=== PATIENT | male | born 1960 | race Caucasian/White ===

== ENCOUNTER 2018-01-11 17:26 | Inpatient (IN) | payer MEDICARE, MEDICAID ==
[2018-01-11] MEDS ORDERED: LORazepam 2 MG TAB PO (20:30)
[2018-01-11] MEDS ORDERED: MOM 30ML SUSPENSION UDC PO (20:30)
[2018-01-11] MEDS ORDERED: MAALOX 30 ML SUSP *UDC PO (20:30)
[2018-01-11] MEDS: THIAMINE 100 MG TAB PO (23:41)
[2018-01-11] MEDS: traZODone 50 MG TAB PO (23:41)
[2018-01-12] MEDS: FOLIC ACID 1 MG TAB PO (09:28)
[2018-01-12] MEDS: MULTIVITAMINS/MINERALS THERAP 1 TAB PO (09:28)
[2018-01-12] MEDS: THIAMINE 100 MG TAB PO ×2 (09:29→20:22)
[2018-01-12 09:43] LABS: BEDSIDE GLUCOSE 191 MG/DL (70-105)
[2018-01-12] MEDS: METOPROLOL TARTRATE 100 MG TAB PO ×2 (11:58→20:20)
[2018-01-12] MEDS: SITagliptin 50 MG TAB (JANUVIA) PO (11:59)
[2018-01-12] MEDS: ATORVASTATIN 20 MG TAB PO (12:03)
[2018-01-12] MEDS: NICOTINE 21MG/24HR 1 EA TRANSDERMAL TD (16:03)
[2018-01-12] MEDS: traZODone 50 MG TAB PO (20:23)
[2018-01-12] MEDS: ACETAMINOPHEN TAB 650MG DOSE (2X325MG) PO (20:23)
[2018-01-12] MEDS: DIVALPROEX 500MG *ER* TAB PO (20:23)
[2018-01-12] MEDS ORDERED: DIVALPROEX 500MG *ER* TAB PO (21:00)
[2018-01-13 06:55] LABS: BEDSIDE GLUCOSE 100 MG/DL (70-105)
[2018-01-13 07:16] LABS: ESTIMATED AVERAGE GLUCOSE 140 MG/DL (60-110); HEMOGLOBIN A1c 6.5 %
[2018-01-13 07:35] LABS: ALBUMIN 3.7 GM/DL (3.2-5.2); ALBUMIN/GLOBULIN RATIO 1.03 (1.00-1.93); ALKALINE PHOSPHATASE 68 U/L (45-117); ALT/SGPT 22 U/L (12-78); ANION GAP 8 MEQ/L (8-16); AST/SGOT 15 U/L (7-37); BILIRUBIN,TOTAL 0.7 MG/DL (0.2-1.0); BLOOD UREA NITROGEN 10 MG/DL (7-18); CALCIUM LEVEL 8.8 MG/DL (8.5-10.1); CARBON DIOXIDE LEVEL 30 MEQ/L (21-32); CHLORIDE LEVEL 104 MEQ/L (98-107); CREATININE FOR GFR 0.77 MG/DL (0.70-1.30); GLOMERULAR FILTRATION RATE > 60.0 (>56); GLUCOSE, FASTING 91 MG/DL (70-100); POTASSIUM SERUM 4.2 MEQ/L (3.5-5.1); SODIUM LEVEL 142 MEQ/L (136-145); TOTAL PROTEIN 7.3 GM/DL (6.4-8.2)
[2018-01-13] MEDS: NICOTINE 21MG/24HR 1 EA TRANSDERMAL TD (08:44)
[2018-01-13] MEDS: ATORVASTATIN 20 MG TAB PO (08:44)
[2018-01-13] MEDS: MULTIVITAMINS/MINERALS THERAP 1 TAB PO (08:44)
[2018-01-13] MEDS: THIAMINE 100 MG TAB PO ×2 (08:44→20:49)
[2018-01-13] MEDS: FOLIC ACID 1 MG TAB PO (08:44)
[2018-01-13] MEDS: SITagliptin 50 MG TAB (JANUVIA) PO (08:48)
[2018-01-13] MEDS: METOPROLOL TARTRATE 100 MG TAB PO ×2 (09:00→20:49)
[2018-01-13] MEDS: ACETAMINOPHEN TAB 650MG DOSE (2X325MG) PO (13:59)
[2018-01-13] MEDS: DIVALPROEX 500MG *ER* TAB PO (20:48)
[2018-01-13] MEDS: FLUTICASONE PROP 0.05% NASAL SPRAY 16 GM (FLONASE) (20:49)
[2018-01-13] MEDS: QUEtiapine FUMARATE 25 MG TAB PO (20:49)
[2018-01-13] MEDS: EXCEDRIN MIGRAINE TABLET PO (20:49)
[2018-01-14] MEDS: EXCEDRIN MIGRAINE TABLET PO ×3 (06:27→21:15)
[2018-01-14 06:31] LABS: BEDSIDE GLUCOSE 109 MG/DL (70-105)
[2018-01-14] MEDS: FOLIC ACID 1 MG TAB PO (08:11)
[2018-01-14] MEDS: MULTIVITAMINS/MINERALS THERAP 1 TAB PO (08:11)
[2018-01-14] MEDS: NICOTINE 21MG/24HR 1 EA TRANSDERMAL TD (08:11)
[2018-01-14] MEDS: SITagliptin 50 MG TAB (JANUVIA) PO (08:11)
[2018-01-14] MEDS: ATORVASTATIN 20 MG TAB PO (08:12)
[2018-01-14] MEDS: THIAMINE 100 MG TAB PO (08:12)
[2018-01-14] MEDS: METOPROLOL TARTRATE 100 MG TAB PO ×2 (08:14→21:14)
[2018-01-14] MEDS: DIVALPROEX 250MG *ER* TAB PO (15:44)
[2018-01-14 17:35] LABS: BEDSIDE GLUCOSE 124 MG/DL (70-105)
[2018-01-14] MEDS: QUEtiapine FUMARATE 50 MG TAB PO (21:14)
[2018-01-14] MEDS: DIVALPROEX 500MG *ER* TAB PO (21:14)
[2018-01-15 06:20] LABS: BEDSIDE GLUCOSE 117 MG/DL (70-105)
[2018-01-15 07:33] LABS: VALPROIC ACID (DEPAKOTE) 61.5 UG/ML (50.0-100.0)
[2018-01-15] MEDS: METOPROLOL TARTRATE 100 MG TAB PO (08:23)
[2018-01-15] MEDS: FOLIC ACID 1 MG TAB PO (08:24)
[2018-01-15] MEDS: DIVALPROEX 250MG *ER* TAB PO (08:24)
[2018-01-15] MEDS: SITagliptin 50 MG TAB (JANUVIA) PO (08:24)
[2018-01-15] MEDS: NICOTINE 21MG/24HR 1 EA TRANSDERMAL TD (08:24)
[2018-01-15] MEDS: MULTIVITAMINS/MINERALS THERAP 1 TAB PO (08:24)
[2018-01-15] MEDS: EXCEDRIN MIGRAINE TABLET PO (08:24)
[2018-01-15] MEDS: ATORVASTATIN 20 MG TAB PO (08:24)
[2018-01-15] MEDS: FLUTICASONE PROP 0.05% NASAL SPRAY 16 GM (FLONASE) (08:25)
[2018-01-15 12:45] LABS: BEDSIDE GLUCOSE 117 MG/DL (70-105)
== END 2018-01-15 13:20 | disposition home or self-care (01) | DRG 885 ==
LOC: M PSY 20:29 → M ED 17:26 → M ED INP 20:29 → M PSY 21:30
PROVIDERS: Psychiatry & Neurology Psychiatry
DX: F31.9 Bipolar disorder, unspecified (principal); F10.10 Alcohol abuse, uncomplicated; F90.9 Attention-deficit hyperactivity disorder, unspecified type; F43.10 Post-traumatic stress disorder, unspecified; F60.89 Other specific personality disorders; E11.9 Type 2 diabetes mellitus without complications; I10 Essential (primary) hypertension; Z79.899 Other long term (current) drug therapy; Z88.8 Allergy status to other drugs, medicaments and biological substances; Z91.018 Allergy to other foods; E78.5 Hyperlipidemia, unspecified; G47.33 Obstructive sleep apnea (adult) (pediatric); E66.9 Obesity, unspecified; Z68.30 Body mass index [BMI] 30.0-30.9, adult; Z62.810 Personal history of physical and sexual abuse in childhood

== ENCOUNTER 2018-05-04 01:37 | Inpatient (IN) | payer MEDICARE, MEDICAID ==
[2018-05-04 02:25] LABS: HEMATOCRIT 39.6 % (42.0-52.0); HEMOGLOBIN 14.4 g/dl (13.5-17.5); MEAN CORPUSCULAR HEMOGLOBIN 33.5 pg (27.0-33.0); MEAN CORPUSCULAR HGB CONC 36.4 g/dl (32.0-36.5); MEAN CORPUSCULAR VOLUME 92.1 fl (80.0-96.0); PLATELET COUNT, AUTOMATED 260 10^3/uL (150-450); RED CELL DISTRIBUTION WIDTH 13.5 % (11.5-14.5); WHITE BLOOD COUNT 6.8 10^3/uL (4.0-10.0)
[2018-05-04 02:45] LABS: AMPHETAMINES LEVEL URINE NEGATIVE (NEGATIVE); BARBITURATES URINE NEGATIVE (NEGATIVE); BENZODIAZEPINES URINE NEGATIVE (NEGATIVE); CANNABINOIDS URINE NEGATIVE (NEGATIVE); COCAINE METABOLITE URINE NEGATIVE (NEGATIVE); METHADONE URINE NEGATIVE (NEGATIVE); OPIATES URINE NEGATIVE (NEGATIVE); PHENCYCLIDINE URINE NEGATIVE (NEGATIVE)
[2018-05-04 02:56] LABS: ALBUMIN 3.7 GM/DL (3.2-5.2); ALKALINE PHOSPHATASE 62 U/L (45-117); ALT/SGPT 93 U/L (12-78); ANION GAP 12 MEQ/L (8-16); AST/SGOT 109 U/L (7-37); BILIRUBIN,DIRECT 0.1 MG/DL (0.0-0.2); BILIRUBIN,TOTAL 0.4 MG/DL (0.2-1.0); BLOOD UREA NITROGEN 5 MG/DL (7-18); CALCIUM LEVEL 8.1 MG/DL (8.5-10.1); CARBON DIOXIDE LEVEL 26 MEQ/L (21-32); CHLORIDE LEVEL 105 MEQ/L (98-107); CREATININE FOR GFR 0.79 MG/DL (0.70-1.30); ETHYL ALCOHOL (ETHANOL) 0.347 % (0.000-0.010); GLOMERULAR FILTRATION RATE > 60.0 (>56); GLUCOSE, FASTING 107 MG/DL (70-100); POTASSIUM SERUM 3.9 MEQ/L (3.5-5.1); SALICYLATE LEVEL < 1.7 MG/DL (5.0-30.0); SODIUM LEVEL 143 MEQ/L (136-145); TOTAL PROTEIN 7.4 GM/DL (6.4-8.2); VALPROIC ACID (DEPAKOTE) 4.2 UG/ML (50.0-100.0)
[2018-05-04 02:57] LABS: ACETAMINOPHEN LEVEL < 2.0 UG/ML (10.0-30.0)
[2018-05-04 04:00] LABS: BEDSIDE GLUCOSE 92 MG/DL (70-105)
[2018-05-04] MEDS: OXAZEPAM 10 MG CAP PO (04:00)
[2018-05-04] MEDS: NICOTINE 21MG/24HR 1 EA TRANSDERMAL TD (04:00)
[2018-05-04] MEDS: MULTIVITAMINS/MINERALS THERAP 1 TAB PO (09:00)
[2018-05-04] MEDS: FOLIC ACID 1 MG TAB PO (09:00)
[2018-05-04] MEDS: NALTREXONE 50 MG TAB PO (09:00)
[2018-05-04] MEDS: OXAZEPAM 15 MG CAP PO ×3 (10:08→20:27)
[2018-05-04 18:21] LABS: BEDSIDE GLUCOSE 134 MG/DL (70-105)
[2018-05-04] MEDS ORDERED: MAALOX 30 ML SUSP *UDC PO (19:15)
[2018-05-04] MEDS ORDERED: traZODone 50 MG TAB PO (19:15)
[2018-05-04] MEDS ORDERED: MOM 30ML SUSPENSION UDC PO (19:15)
[2018-05-04] MEDS: ACETAMINOPHEN TAB 650MG DOSE (2X325MG) PO (20:26)
[2018-05-04] MEDS: METOPROLOL TARTRATE 100 MG TAB PO (20:27)
[2018-05-04] MEDS: MONTELUKAST 10 MG TAB PO (20:27)
[2018-05-04] MEDS: ATORVASTATIN 20 MG TAB PO (20:28)
[2018-05-04] MEDS: DIVALPROEX 500MG *ER* TAB PO (20:28)
[2018-05-04] MEDS: THIAMINE 100 MG TAB PO (20:29)
[2018-05-04] MEDS: PRAZOSIN 1 MG CAP PO (20:29)
[2018-05-04] MEDS: QUEtiapine FUMARATE 100 MG TAB PO (20:29)
[2018-05-05] MEDS: NALTREXONE 50 MG TAB PO (08:28)
[2018-05-05] MEDS: DIVALPROEX 500MG *ER* TAB PO ×2 (08:28→21:29)
[2018-05-05] MEDS: FOLIC ACID 1 MG TAB PO (08:29)
[2018-05-05] MEDS: SITagliptin 50 MG TAB (JANUVIA) PO (08:29)
[2018-05-05] MEDS: MULTIVITAMINS/MINERALS THERAP 1 TAB PO (08:30)
[2018-05-05] MEDS: THIAMINE 100 MG TAB PO ×2 (08:30→21:27)
[2018-05-05] MEDS: OXAZEPAM 10 MG CAP PO (08:30)
[2018-05-05] MEDS: METOPROLOL TARTRATE 100 MG TAB PO ×2 (08:32→21:00)
[2018-05-05] MEDS: ACETAMINOPHEN TAB 650MG DOSE (2X325MG) PO (08:33)
[2018-05-05] MEDS: NICOTINE 21MG/24HR 1 EA TRANSDERMAL TD (09:30)
[2018-05-05] MEDS ORDERED: LORazepam 1 MG TAB PO (14:30)
[2018-05-05] MEDS: MONTELUKAST 10 MG TAB PO (21:27)
[2018-05-05] MEDS: QUEtiapine FUMARATE 100 MG TAB PO (21:27)
[2018-05-05] MEDS: ATORVASTATIN 20 MG TAB PO (21:28)
[2018-05-05] MEDS: PRAZOSIN 1 MG CAP PO (21:28)
[2018-05-05] MEDS: LISINOPRIL 5 MG TAB PO (22:57)
[2018-05-06 07:42] LABS: ALBUMIN 3.4 GM/DL (3.2-5.2); ALBUMIN/GLOBULIN RATIO 0.87 (1.00-1.93); ALKALINE PHOSPHATASE 64 U/L (45-117); ALT/SGPT 65 U/L (12-78); AST/SGOT 42 U/L (7-37); BILIRUBIN,DIRECT 0.2 MG/DL (0.0-0.2); BILIRUBIN,TOTAL 0.6 MG/DL (0.2-1.0); TOTAL PROTEIN 7.3 GM/DL (6.4-8.2)
[2018-05-06] MEDS: NALTREXONE 50 MG TAB PO (08:31)
[2018-05-06] MEDS: DIVALPROEX 500MG *ER* TAB PO ×2 (08:32→21:08)
[2018-05-06] MEDS: FOLIC ACID 1 MG TAB PO (08:32)
[2018-05-06] MEDS: MULTIVITAMINS/MINERALS THERAP 1 TAB PO (08:32)
[2018-05-06] MEDS: SITagliptin 50 MG TAB (JANUVIA) PO (08:33)
[2018-05-06] MEDS: LISINOPRIL 5 MG TAB PO (08:33)
[2018-05-06] MEDS: THIAMINE 100 MG TAB PO ×2 (08:34→21:07)
[2018-05-06] MEDS: NICOTINE 21MG/24HR 1 EA TRANSDERMAL TD (08:36)
[2018-05-06] MEDS: METOPROLOL TARTRATE 100 MG TAB PO ×2 (08:39→21:00)
[2018-05-06] MEDS: ACETAMINOPHEN TAB 650MG DOSE (2X325MG) PO (11:39)
[2018-05-06] MEDS: ATORVASTATIN 20 MG TAB PO (21:07)
[2018-05-06] MEDS: MONTELUKAST 10 MG TAB PO (21:07)
[2018-05-06] MEDS: PRAZOSIN 1 MG CAP PO (21:07)
[2018-05-06] MEDS: QUEtiapine FUMARATE 50 MG TAB PO (21:07)
[2018-05-07] MEDS: FOLIC ACID 1 MG TAB PO (08:21)
[2018-05-07] MEDS: MULTIVITAMINS/MINERALS THERAP 1 TAB PO (08:21)
[2018-05-07] MEDS: DIVALPROEX 500MG *ER* TAB PO (08:21)
[2018-05-07] MEDS: NICOTINE 21MG/24HR 1 EA TRANSDERMAL TD (08:21)
[2018-05-07] MEDS: FLUTICASONE PROP 0.05% NASAL SPRAY 16 GM (FLONASE) NARES (08:21)
[2018-05-07] MEDS: SITagliptin 50 MG TAB (JANUVIA) PO (08:21)
[2018-05-07] MEDS: THIAMINE 100 MG TAB PO (08:22)
[2018-05-07] MEDS: LISINOPRIL 5 MG TAB PO (08:22)
[2018-05-07] MEDS: METOPROLOL TARTRATE 100 MG TAB PO (08:22)
[2018-05-07] MEDS: NALTREXONE 50 MG TAB PO (08:22)
== END 2018-05-07 12:30 | disposition home or self-care (01) | DRG 885 ==
LOC: M ED 01:37 → M PSY 17:45
DX: F31.81 Bipolar II disorder (principal); R45.851 Suicidal ideations; F43.10 Post-traumatic stress disorder, unspecified; J30.9 Allergic rhinitis, unspecified; G47.33 Obstructive sleep apnea (adult) (pediatric); R94.5 Abnormal results of liver function studies; E11.9 Type 2 diabetes mellitus without complications; E78.5 Hyperlipidemia, unspecified; F17.228 Nicotine dependence, chewing tobacco, with other nicotine-induced disorders; I10 Essential (primary) hypertension; F90.9 Attention-deficit hyperactivity disorder, unspecified type; Z88.8 Allergy status to other drugs, medicaments and biological substances; Z91.018 Allergy to other foods; Z79.84 Long term (current) use of oral hypoglycemic drugs; Z79.899 Other long term (current) drug therapy

== ENCOUNTER 2018-05-12 19:10 | Inpatient (IN) | payer MEDICARE, MEDICAID ==
[2018-05-12 19:59] LABS: HEMATOCRIT 41.7 % (42.0-52.0); HEMOGLOBIN 14.9 g/dl (13.5-17.5); MEAN CORPUSCULAR HGB CONC 35.7 g/dl (32.0-36.5); MEAN CORPUSCULAR VOLUME 92.5 fl (80.0-96.0); PLATELET COUNT, AUTOMATED 234 10^3/uL (150-450); RED BLOOD COUNT 4.51 10^6/uL (4.30-6.10); RED CELL DISTRIBUTION WIDTH 13.9 % (11.5-14.5); WHITE BLOOD COUNT 7.9 10^3/uL (4.0-10.0)
[2018-05-12 20:19] LABS: ALKALINE PHOSPHATASE 65 U/L (45-117); ALT/SGPT 37 U/L (12-78); ANION GAP 14 MEQ/L (8-16); AST/SGOT 26 U/L (7-37); BILIRUBIN,DIRECT 0.2 MG/DL (0.0-0.2); BILIRUBIN,TOTAL 0.5 MG/DL (0.2-1.0); BLOOD UREA NITROGEN 4 MG/DL (7-18); CALCIUM LEVEL 8.2 MG/DL (8.5-10.1); CARBON DIOXIDE LEVEL 24 MEQ/L (21-32); CHLORIDE LEVEL 104 MEQ/L (98-107); CREATININE FOR GFR 0.69 MG/DL (0.70-1.30); ETHYL ALCOHOL (ETHANOL) 0.317 % (0.000-0.010); GLOMERULAR FILTRATION RATE > 60.0 (>56); GLUCOSE, FASTING 103 MG/DL (70-100); POTASSIUM SERUM 3.6 MEQ/L (3.5-5.1); SALICYLATE LEVEL < 1.7 MG/DL (5.0-30.0); SODIUM LEVEL 142 MEQ/L (136-145); THYROID STIMULATING HORMONE 0.907 uIU/ML (0.358-3.740)
[2018-05-12] MEDS: NICOTINE 21MG/24HR 1 EA TRANSDERMAL TD (20:20)
[2018-05-12 20:21] LABS: ACETAMINOPHEN LEVEL < 2.0 UG/ML (10.0-30.0)
[2018-05-12 20:52] LABS: AMPHETAMINES LEVEL URINE NEGATIVE (NEGATIVE); BARBITURATES URINE NEGATIVE (NEGATIVE); BENZODIAZEPINES URINE NEGATIVE (NEGATIVE); CANNABINOIDS URINE NEGATIVE (NEGATIVE); COCAINE METABOLITE URINE NEGATIVE (NEGATIVE); METHADONE URINE NEGATIVE (NEGATIVE); OPIATES URINE NEGATIVE (NEGATIVE); PHENCYCLIDINE URINE NEGATIVE (NEGATIVE)
[2018-05-13] MEDS: OXAZEPAM 15 MG CAP PO (03:32)
[2018-05-13] MEDS ORDERED: MAALOX 30 ML SUSP *UDC PO (05:15)
[2018-05-13] MEDS: LORazepam 2 MG/ML VIAL (J2060) IM (09:50)
[2018-05-13] MEDS: THIAMINE 100 MG TAB PO (09:51)
[2018-05-13] MEDS: MULTIVITAMINS/MINERALS THERAP 1 TAB PO (09:51)
[2018-05-13] MEDS: FOLIC ACID 1 MG TAB PO (09:51)
[2018-05-13] MEDS: NALTREXONE 50 MG TAB PO ×2 (11:36→21:07)
[2018-05-13] MEDS ORDERED: LORazepam 1 MG TAB PO (12:30)
[2018-05-13] MEDS: SITagliptin 50 MG TAB (JANUVIA) PO (12:43)
[2018-05-13] MEDS: FLUTICASONE PROP 0.05% NASAL SPRAY 16 GM (FLONASE) NARES (12:43)
[2018-05-13] MEDS: METOPROLOL TARTRATE 100 MG TAB PO ×2 (12:44→21:07)
[2018-05-13] MEDS: LORazepam 1 MG TAB PO (12:47)
[2018-05-13] MEDS ORDERED: LORazepam 2 MG TAB PO (13:00)
[2018-05-13 17:14] LABS: BEDSIDE GLUCOSE 122 MG/DL (70-105)
[2018-05-13] MEDS: ATORVASTATIN 20 MG TAB PO (21:04)
[2018-05-13] MEDS: ACETAMINOPHEN TAB 650MG DOSE (2X325MG) PO (21:04)
[2018-05-13] MEDS: DIVALPROEX 500MG *ER* TAB PO (21:04)
[2018-05-13] MEDS: traZODone 50 MG TAB PO (21:09)
[2018-05-14] MEDS ORDERED: LORazepam 1 MG TAB PO (06:00)
[2018-05-14 06:07] LABS: BEDSIDE GLUCOSE 116 MG/DL (70-105)
[2018-05-14] MEDS: NALTREXONE 50 MG TAB PO ×2 (08:09→21:07)
[2018-05-14] MEDS: METOPROLOL TARTRATE 100 MG TAB PO ×2 (08:10→21:07)
[2018-05-14] MEDS: FLUTICASONE PROP 0.05% NASAL SPRAY 16 GM (FLONASE) NARES (08:10)
[2018-05-14] MEDS: THIAMINE 100 MG TAB PO (08:10)
[2018-05-14] MEDS: FOLIC ACID 1 MG TAB PO (08:10)
[2018-05-14] MEDS: SITagliptin 50 MG TAB (JANUVIA) PO (08:10)
[2018-05-14] MEDS: MULTIVITAMINS/MINERALS THERAP 1 TAB PO (08:10)
[2018-05-14] MEDS: NICOTINE 21MG/24HR 1 EA TRANSDERMAL TD (09:05)
[2018-05-14] MEDS ORDERED: LORazepam 2 MG TAB PO (15:00)
[2018-05-14 16:23] LABS: BEDSIDE GLUCOSE 136 MG/DL (70-105)
[2018-05-14] MEDS: ACETAMINOPHEN TAB 650MG DOSE (2X325MG) PO (16:23)
[2018-05-14] MEDS: ATORVASTATIN 20 MG TAB PO (21:07)
[2018-05-14] MEDS: DIVALPROEX 500MG *ER* TAB PO (21:07)
[2018-05-14] MEDS: QUEtiapine FUMARATE 100 MG TAB PO (21:08)
[2018-05-15 06:22] LABS: BEDSIDE GLUCOSE 135 MG/DL (70-105)
[2018-05-15] MEDS: ACETAMINOPHEN TAB 650MG DOSE (2X325MG) PO ×2 (06:24→20:52)
[2018-05-15] MEDS: NICOTINE 21MG/24HR 1 EA TRANSDERMAL TD (08:30)
[2018-05-15] MEDS: SITagliptin 50 MG TAB (JANUVIA) PO (08:30)
[2018-05-15] MEDS: FLUTICASONE PROP 0.05% NASAL SPRAY 16 GM (FLONASE) NARES (08:30)
[2018-05-15] MEDS: METOPROLOL TARTRATE 100 MG TAB PO ×2 (08:31→20:55)
[2018-05-15] MEDS: NALTREXONE 50 MG TAB PO ×2 (08:31→20:52)
[2018-05-15] MEDS: FOLIC ACID 1 MG TAB PO (08:31)
[2018-05-15] MEDS: MULTIVITAMINS/MINERALS THERAP 1 TAB PO (08:32)
[2018-05-15] MEDS: THIAMINE 100 MG TAB PO (09:00)
[2018-05-15 17:11] LABS: BEDSIDE GLUCOSE 153 MG/DL (70-105)
[2018-05-15] MEDS: ATORVASTATIN 20 MG TAB PO (20:52)
[2018-05-15] MEDS: DIVALPROEX 500MG *ER* TAB PO (20:52)
[2018-05-15] MEDS: QUEtiapine FUMARATE 50 MG TAB PO (20:52)
[2018-05-16 06:16] LABS: BEDSIDE GLUCOSE 88 MG/DL (70-105)
[2018-05-16 07:06] LABS: VALPROIC ACID (DEPAKOTE) 55.9 UG/ML (50.0-100.0)
[2018-05-16] MEDS: FLUTICASONE PROP 0.05% NASAL SPRAY 16 GM (FLONASE) NARES (08:25)
[2018-05-16] MEDS: NICOTINE 21MG/24HR 1 EA TRANSDERMAL TD (08:25)
[2018-05-16] MEDS: NALTREXONE 50 MG TAB PO ×2 (08:26→21:04)
[2018-05-16] MEDS: METOPROLOL TARTRATE 100 MG TAB PO ×2 (08:26→21:03)
[2018-05-16] MEDS: SITagliptin 50 MG TAB (JANUVIA) PO (08:26)
[2018-05-16] MEDS: MULTIVITAMINS/MINERALS THERAP 1 TAB PO (08:26)
[2018-05-16] MEDS: THIAMINE 100 MG TAB PO (08:27)
[2018-05-16] MEDS: FOLIC ACID 1 MG TAB PO (09:00)
[2018-05-16] MEDS: ARIPiprazole 10 MG TAB PO (12:19)
[2018-05-16] MEDS: ACETAMINOPHEN TAB 650MG DOSE (2X325MG) PO ×2 (15:15→21:05)
[2018-05-16 17:15] LABS: BEDSIDE GLUCOSE 124 MG/DL (70-105)
[2018-05-16] MEDS: ATORVASTATIN 20 MG TAB PO (21:04)
[2018-05-16] MEDS: QUEtiapine FUMARATE 50 MG TAB PO (21:04)
[2018-05-16] MEDS: DIVALPROEX 500MG *ER* TAB PO (21:04)
[2018-05-17 06:31] LABS: BEDSIDE GLUCOSE 102 MG/DL (70-105)
[2018-05-17] MEDS: NALTREXONE 50 MG TAB PO ×2 (08:03→20:50)
[2018-05-17] MEDS: METOPROLOL TARTRATE 100 MG TAB PO ×2 (08:04→20:53)
[2018-05-17] MEDS: NICOTINE 21MG/24HR 1 EA TRANSDERMAL TD (08:04)
[2018-05-17] MEDS: FLUTICASONE PROP 0.05% NASAL SPRAY 16 GM (FLONASE) NARES (08:04)
[2018-05-17] MEDS: SITagliptin 50 MG TAB (JANUVIA) PO (08:04)
[2018-05-17] MEDS: MULTIVITAMINS/MINERALS THERAP 1 TAB PO (08:06)
[2018-05-17] MEDS: FOLIC ACID 1 MG TAB PO (08:06)
[2018-05-17] MEDS: THIAMINE 100 MG TAB PO (08:06)
[2018-05-17 16:21] LABS: BEDSIDE GLUCOSE 158 MG/DL (70-105)
[2018-05-17] MEDS: ACETAMINOPHEN TAB 650MG DOSE (2X325MG) PO (20:49)
[2018-05-17] MEDS: QUEtiapine FUMARATE 50 MG TAB PO (20:49)
[2018-05-17] MEDS: ATORVASTATIN 20 MG TAB PO (20:50)
[2018-05-18] MEDS: ACETAMINOPHEN TAB 650MG DOSE (2X325MG) PO ×2 (06:23→21:19)
[2018-05-18 06:26] LABS: BEDSIDE GLUCOSE 98 MG/DL (70-105)
[2018-05-18] MEDS: METOPROLOL TARTRATE 100 MG TAB PO ×2 (08:01→21:00)
[2018-05-18] MEDS: NICOTINE 21MG/24HR 1 EA TRANSDERMAL TD (08:01)
[2018-05-18] MEDS: NALTREXONE 50 MG TAB PO ×2 (08:01→21:20)
[2018-05-18] MEDS: FLUTICASONE PROP 0.05% NASAL SPRAY 16 GM (FLONASE) NARES (08:01)
[2018-05-18] MEDS: SITagliptin 50 MG TAB (JANUVIA) PO (08:02)
[2018-05-18] MEDS: FOLIC ACID 1 MG TAB PO (08:03)
[2018-05-18] MEDS: THIAMINE 100 MG TAB PO (08:03)
[2018-05-18] MEDS: MULTIVITAMINS/MINERALS THERAP 1 TAB PO (08:03)
[2018-05-18] MEDS: hydrOXYzine 50 MG TAB PO (11:53)
[2018-05-18 17:02] LABS: BEDSIDE GLUCOSE 94 MG/DL (70-105)
[2018-05-18] MEDS: ATORVASTATIN 20 MG TAB PO (21:20)
[2018-05-18] MEDS: QUEtiapine FUMARATE 50 MG TAB PO (21:21)
[2018-05-19 06:17] LABS: BEDSIDE GLUCOSE 112 MG/DL (70-105)
[2018-05-19] MEDS: SITagliptin 50 MG TAB (JANUVIA) PO (08:41)
[2018-05-19] MEDS: NALTREXONE 50 MG TAB PO ×2 (08:41→20:41)
[2018-05-19] MEDS: METOPROLOL TARTRATE 100 MG TAB PO ×2 (08:43→20:41)
[2018-05-19] MEDS: NICOTINE 21MG/24HR 1 EA TRANSDERMAL TD (08:44)
[2018-05-19] MEDS: FLUTICASONE PROP 0.05% NASAL SPRAY 16 GM (FLONASE) NARES (08:46)
[2018-05-19] MEDS: MULTIVITAMINS/MINERALS THERAP 1 TAB PO (09:00)
[2018-05-19] MEDS: THIAMINE 100 MG TAB PO (09:00)
[2018-05-19] MEDS: FOLIC ACID 1 MG TAB PO (09:00)
[2018-05-19] MEDS: hydrOXYzine 50 MG TAB PO (16:00)
[2018-05-19 16:39] LABS: BEDSIDE GLUCOSE 125 MG/DL (70-105)
[2018-05-19] MEDS: ARIPiprazole 10 MG TAB PO (20:41)
[2018-05-19] MEDS: ATORVASTATIN 20 MG TAB PO (20:41)
[2018-05-19] MEDS: QUEtiapine FUMARATE 50 MG TAB PO (20:41)
[2018-05-20 06:24] LABS: BEDSIDE GLUCOSE 115 MG/DL (70-105)
[2018-05-20] MEDS: SITagliptin 50 MG TAB (JANUVIA) PO (08:47)
[2018-05-20] MEDS: NICOTINE 21MG/24HR 1 EA TRANSDERMAL TD (08:47)
[2018-05-20] MEDS: NALTREXONE 50 MG TAB PO ×2 (08:47→21:00)
[2018-05-20] MEDS: FLUTICASONE PROP 0.05% NASAL SPRAY 16 GM (FLONASE) NARES (08:48)
[2018-05-20] MEDS: METOPROLOL TARTRATE 100 MG TAB PO ×2 (08:51→21:00)
[2018-05-20] MEDS: MULTIVITAMINS/MINERALS THERAP 1 TAB PO (09:00)
[2018-05-20] MEDS: FOLIC ACID 1 MG TAB PO (09:00)
[2018-05-20] MEDS: THIAMINE 100 MG TAB PO (09:00)
[2018-05-20 17:19] LABS: BEDSIDE GLUCOSE 163 MG/DL (70-105)
[2018-05-20] MEDS: QUEtiapine FUMARATE 200 MG TAB PO (21:00)
[2018-05-20] MEDS: ATORVASTATIN 20 MG TAB PO (21:00)
[2018-05-20] MEDS: ARIPiprazole 10 MG TAB PO (21:00)
[2018-05-21] MEDS: NICOTINE 21MG/24HR 1 EA TRANSDERMAL TD (08:21)
[2018-05-21] MEDS: FLUTICASONE PROP 0.05% NASAL SPRAY 16 GM (FLONASE) NARES (08:21)
[2018-05-21] MEDS: SITagliptin 50 MG TAB (JANUVIA) PO (08:21)
[2018-05-21] MEDS: ARIPiprazole 10 MG TAB PO ×2 (08:21→21:02)
[2018-05-21] MEDS: NALTREXONE 50 MG TAB PO ×2 (08:21→21:01)
[2018-05-21] MEDS: METOPROLOL TARTRATE 100 MG TAB PO ×2 (08:23→21:00)
[2018-05-21] MEDS: MULTIVITAMINS/MINERALS THERAP 1 TAB PO (08:24)
[2018-05-21] MEDS: THIAMINE 100 MG TAB PO (08:25)
[2018-05-21] MEDS: FOLIC ACID 1 MG TAB PO (08:25)
[2018-05-21] MEDS: SODIUM CHLORIDE NASAL 0.65% SPRAY BTL (OCEAN) ×2 (11:44→21:01)
[2018-05-21] MEDS: hydrOXYzine 50 MG TAB PO (14:37)
[2018-05-21 17:32] LABS: BEDSIDE GLUCOSE 127 MG/DL (70-105)
[2018-05-21] MEDS: QUEtiapine FUMARATE 200 MG TAB PO (21:01)
[2018-05-21] MEDS: ATORVASTATIN 20 MG TAB PO (21:02)
[2018-05-22 06:06] LABS: BEDSIDE GLUCOSE 119 MG/DL (70-105)
[2018-05-22] MEDS: NALTREXONE 50 MG TAB PO ×2 (08:20→21:06)
[2018-05-22] MEDS: SITagliptin 50 MG TAB (JANUVIA) PO (08:20)
[2018-05-22] MEDS: METOPROLOL TARTRATE 100 MG TAB PO ×2 (08:20→21:00)
[2018-05-22] MEDS: FLUTICASONE PROP 0.05% NASAL SPRAY 16 GM (FLONASE) NARES (08:21)
[2018-05-22] MEDS: NICOTINE 21MG/24HR 1 EA TRANSDERMAL TD (08:21)
[2018-05-22] MEDS: ARIPiprazole 10 MG TAB PO ×2 (08:21→21:09)
[2018-05-22] MEDS: THIAMINE 100 MG TAB PO (08:22)
[2018-05-22] MEDS: MULTIVITAMINS/MINERALS THERAP 1 TAB PO (08:22)
[2018-05-22] MEDS: FOLIC ACID 1 MG TAB PO (08:22)
[2018-05-22] MEDS: MOM 30ML SUSPENSION UDC PO (10:31)
[2018-05-22] MEDS: SODIUM CHLORIDE NASAL 0.65% SPRAY BTL (OCEAN) ×2 (12:46→21:06)
[2018-05-22] MEDS: QUEtiapine FUMARATE 200 MG TAB PO (21:06)
[2018-05-22] MEDS: ATORVASTATIN 20 MG TAB PO (21:07)
[2018-05-23 06:19] LABS: BEDSIDE GLUCOSE 106 MG/DL (70-105)
[2018-05-23] MEDS: FLUTICASONE PROP 0.05% NASAL SPRAY 16 GM (FLONASE) NARES (08:06)
[2018-05-23] MEDS: SITagliptin 50 MG TAB (JANUVIA) PO (08:06)
[2018-05-23] MEDS: NALTREXONE 50 MG TAB PO ×2 (08:07→20:32)
[2018-05-23] MEDS: METOPROLOL TARTRATE 100 MG TAB PO ×2 (08:07→20:33)
[2018-05-23] MEDS: NICOTINE 21MG/24HR 1 EA TRANSDERMAL TD (08:08)
[2018-05-23] MEDS: ARIPiprazole 10 MG TAB PO ×2 (08:08→20:32)
[2018-05-23] MEDS: THIAMINE 100 MG TAB PO (08:09)
[2018-05-23] MEDS: MULTIVITAMINS/MINERALS THERAP 1 TAB PO (08:09)
[2018-05-23] MEDS: FOLIC ACID 1 MG TAB PO (08:09)
[2018-05-23] MEDS: SODIUM CHLORIDE NASAL 0.65% SPRAY BTL (OCEAN) (14:18)
[2018-05-23 16:25] LABS: BEDSIDE GLUCOSE 131 MG/DL (70-105)
[2018-05-23] MEDS: ATORVASTATIN 20 MG TAB PO (20:32)
[2018-05-23] MEDS: QUEtiapine FUMARATE 200 MG TAB PO (20:32)
[2018-05-24 06:37] LABS: BEDSIDE GLUCOSE 106 MG/DL (70-105)
[2018-05-24] MEDS: THIAMINE 100 MG TAB PO (08:22)
[2018-05-24] MEDS: FOLIC ACID 1 MG TAB PO (08:22)
[2018-05-24] MEDS: MULTIVITAMINS/MINERALS THERAP 1 TAB PO (08:22)
[2018-05-24] MEDS: METOPROLOL TARTRATE 100 MG TAB PO ×2 (08:24→20:58)
[2018-05-24] MEDS: FLUTICASONE PROP 0.05% NASAL SPRAY 16 GM (FLONASE) NARES (08:27)
[2018-05-24] MEDS: SITagliptin 50 MG TAB (JANUVIA) PO (08:27)
[2018-05-24] MEDS: NALTREXONE 50 MG TAB PO ×2 (08:27→21:00)
[2018-05-24] MEDS: ARIPiprazole 10 MG TAB PO (08:28)
[2018-05-24] MEDS: NICOTINE 21MG/24HR 1 EA TRANSDERMAL TD (08:28)
[2018-05-24] MEDS: SODIUM CHLORIDE NASAL 0.65% SPRAY BTL (OCEAN) ×2 (16:02→20:59)
[2018-05-24 17:04] LABS: BEDSIDE GLUCOSE 117 MG/DL (70-105)
[2018-05-24] MEDS: ARIPiprazole 15 MG TAB (AbiLIFY) PO (21:00)
[2018-05-24] MEDS: QUEtiapine FUMARATE 200 MG TAB PO (21:00)
[2018-05-24] MEDS: ATORVASTATIN 20 MG TAB PO (21:00)
[2018-05-25 06:24] LABS: BEDSIDE GLUCOSE 104 MG/DL (70-105)
[2018-05-25] MEDS: NALTREXONE 50 MG TAB PO (08:38)
[2018-05-25] MEDS: FLUTICASONE PROP 0.05% NASAL SPRAY 16 GM (FLONASE) NARES (08:38)
[2018-05-25] MEDS: NICOTINE 21MG/24HR 1 EA TRANSDERMAL TD (08:39)
[2018-05-25] MEDS: ARIPiprazole 10 MG TAB PO (08:39)
[2018-05-25] MEDS: SITagliptin 50 MG TAB (JANUVIA) PO (08:41)
[2018-05-25] MEDS: THIAMINE 100 MG TAB PO (09:00)
[2018-05-25] MEDS: METOPROLOL TARTRATE 100 MG TAB PO (09:00)
[2018-05-25] MEDS: MULTIVITAMINS/MINERALS THERAP 1 TAB PO (09:00)
[2018-05-25] MEDS: FOLIC ACID 1 MG TAB PO (09:00)
[2018-05-25] MEDS: ARIPiprazole MONOHYDRATE 400 MG INJ (ABILIFY)(J0401) IM (10:39)
== END 2018-05-25 12:00 | disposition home or self-care (01) | DRG 885 ==
LOC: M ED 19:10 → M ED INP 05-13 05:01 → M PSY 05-13 08:10
DX: F31.81 Bipolar II disorder (principal); R45.851 Suicidal ideations; F10.10 Alcohol abuse, uncomplicated; F90.9 Attention-deficit hyperactivity disorder, unspecified type; Z91.14 Patient's other noncompliance with medication regimen; Z62.810 Personal history of physical and sexual abuse in childhood; Z79.899 Other long term (current) drug therapy; Z88.8 Allergy status to other drugs, medicaments and biological substances; Z91.040 Latex allergy status; Z91.018 Allergy to other foods; I10 Essential (primary) hypertension; E78.5 Hyperlipidemia, unspecified; F41.9 Anxiety disorder, unspecified; E11.9 Type 2 diabetes mellitus without complications; J30.9 Allergic rhinitis, unspecified; G47.33 Obstructive sleep apnea (adult) (pediatric); F43.10 Post-traumatic stress disorder, unspecified; Z63.8 Other specified problems related to primary support group

== ENCOUNTER 2019-06-29 15:44 | Emergency (ER) | payer MEDICARE, MEDICAID ==
[~2019-06-29] VITALS: Ht 167.6 cm; Wt 90.9 kg
[~2019-06-29 15:44] MED LIST: ABIL400I IM; ACAM0.05 PO; AMLO2.5T3 PO; ARIP1TAB PO; ARIP1TAB10 PO; ATOR1TAB19 PO; ATOR40TA75 PO; ATORVASTA; DEPA250T2 PO; DEPA500T2 PO; DIVA500T9; DIVA500T9 PO; FLON1SPR; FLUTISP; FOLI1TAB11 PO; HYDR1TAB33 PO; JANU100T PO; METO100T5 PO; METO37.5 PO; MIRT15TA3 PO; NALT50TA4 PO; NICO21PAT TD; PRAZ2CAP PO; QUET1TAB8 PO; QUET200T2 PO; QUET5TAB PO; SING10TA32 PO; SYMB80INH INH; VITMTA PO
[2019-06-29 17:23] LABS: HEMATOCRIT 44.9 % (42.0-52.0); HEMOGLOBIN 16.2 g/dl (13.5-17.5); MEAN CORPUSCULAR HGB CONC 36.1 g/dl (32.0-36.5); MEAN CORPUSCULAR VOLUME 88.7 fl (80.0-96.0); PLATELET COUNT, AUTOMATED 326 10^3/uL (150-450); RED BLOOD COUNT 5.06 10^6/uL (4.30-6.10); WHITE BLOOD COUNT 10.2 10^3/uL (4.0-10.0)
[2019-06-29 17:53] LABS: AMPHETAMINES LEVEL URINE NEGATIVE (NEGATIVE); BARBITURATES URINE NEGATIVE (NEGATIVE); BENZODIAZEPINES URINE NEGATIVE (NEGATIVE); CANNABINOIDS URINE NEGATIVE (NEGATIVE); COCAINE METABOLITE URINE NEGATIVE (NEGATIVE); METHADONE URINE NEGATIVE (NEGATIVE); OPIATES URINE NEGATIVE (NEGATIVE); PHENCYCLIDINE URINE NEGATIVE (NEGATIVE)
[2019-06-29] MEDS ORDERED: AMIT10TA PO (17:56)
[2019-06-29] MEDS ORDERED: AMIT25TA PO (17:56)
[2019-06-29 18:06] LABS: ACETAMINOPHEN LEVEL < 2.0 UG/ML (10.0-30.0); ALBUMIN 3.7 GM/DL (3.2-5.2); ALT/SGPT 34 U/L (12-78); BILIRUBIN,DIRECT 0.2 MG/DL (0.0-0.2); BILIRUBIN,TOTAL 0.4 MG/DL (0.2-1.0); BLOOD UREA NITROGEN 8 MG/DL (7-18); CALCIUM LEVEL 8.6 MG/DL (8.5-10.1); CARBON DIOXIDE LEVEL 24 MEQ/L (21-32); CHLORIDE LEVEL 106 MEQ/L (98-107); CREATININE FOR GFR 0.76 MG/DL (0.70-1.30); ETHYL ALCOHOL (ETHANOL) 0.247 % (0.000-0.010); GLOMERULAR FILTRATION RATE > 60.0 (>56); GLUCOSE, FASTING 88 MG/DL (70-100); POTASSIUM SERUM 3.9 MEQ/L (3.5-5.1); SALICYLATE LEVEL 2.2 MG/DL (5.0-30.0); SODIUM LEVEL 144 MEQ/L (136-145); TOTAL PROTEIN 7.5 GM/DL (6.4-8.2)
[2019-06-30 01:19] VITALS: BP 178/97
== END 2019-06-30 01:24 | disposition home or self-care (01) ==
LOC: M ED 15:44
DX: F10.229 Alcohol dependence with intoxication, unspecified (principal); F31.9 Bipolar disorder, unspecified; I10 Essential (primary) hypertension; F17.210 Nicotine dependence, cigarettes, uncomplicated; Z79.899 Other long term (current) drug therapy; Z88.8 Allergy status to other drugs, medicaments and biological substances; Z91.018 Allergy to other foods; Z91.040 Latex allergy status
CPT/HCPCS: 36415; 80048; 80076; 80307; 84443; 85027; 99284; G0480

== ENCOUNTER 2021-05-19 20:07 | Inpatient (IN) | payer OTHER, MEDICAID ==
[~2021-05-19] VITALS: Ht 167.6 cm; Wt 65.9 kg
[~2021-05-19 20:07] MED LIST changes: +AMIT10TA7 PO; +AMIT25TA17 PO; +QUET100T2 PO; -QUET1TAB8 PO; +QUET50TA4 PO; -QUET5TAB PO
[2021-05-19] MEDS ORDERED: LORazepam 2 MG TAB PO PRN (21:15)
[2021-05-19 21:51] LABS: HEMATOCRIT 41.9 % (42.0-52.0); HEMOGLOBIN 14.8 g/dl (13.5-17.5); MEAN CORPUSCULAR HEMOGLOBIN 32.8 pg (27.0-33.0); MEAN CORPUSCULAR HGB CONC 35.3 g/dl (32.0-36.5); MEAN CORPUSCULAR VOLUME 92.9 fl (80.0-96.0); PLATELET COUNT, AUTOMATED 324 10^3/uL (150-450); RED BLOOD COUNT 4.51 10^6/uL (4.30-6.10); WHITE BLOOD COUNT 11.7 10^3/uL (4.0-10.0)
[2021-05-19] MEDS: THIAMINE 100 MG TAB PO SCH (22:02)
[2021-05-19 22:20] LABS: AMPHETAMINES LEVEL URINE NEGATIVE (NEGATIVE); BARBITURATES URINE NEGATIVE (NEGATIVE); BENZODIAZEPINES URINE NEGATIVE (NEGATIVE); CANNABINOIDS URINE NEGATIVE (NEGATIVE); COCAINE METABOLITE URINE NEGATIVE (NEGATIVE); METHADONE URINE NEGATIVE (NEGATIVE); OPIATES URINE NEGATIVE (NEGATIVE); PHENCYCLIDINE URINE NEGATIVE (NEGATIVE)
[2021-05-19 22:31] LABS: ACETAMINOPHEN LEVEL < 2.0 UG/ML (10.0-30.0); ALBUMIN 3.7 GM/DL (3.2-5.2); ALT/SGPT 34 U/L (12-78); BILIRUBIN,DIRECT 0.1 MG/DL (0.0-0.2); BILIRUBIN,TOTAL 0.3 MG/DL (0.2-1.0); BLOOD UREA NITROGEN 3 MG/DL (7-18); CALCIUM LEVEL 8.7 MG/DL (8.5-10.1); CARBON DIOXIDE LEVEL 27 MEQ/L (21-32); CHLORIDE LEVEL 99 MEQ/L (98-107); ETHYL ALCOHOL (ETHANOL) 0.257 % (0.000-0.010); GLOMERULAR FILTRATION RATE > 60.0 (>56); GLUCOSE, FASTING 92 MG/DL (70-100); SALICYLATE LEVEL < 1.7 MG/DL (5.0-30.0); SODIUM LEVEL 137 MEQ/L (136-145); TOTAL PROTEIN 7.5 GM/DL (6.4-8.2)
[2021-05-20] MEDS: THIAMINE 100 MG TAB PO SCH ×3 (08:12→20:37)
[2021-05-20] MEDS ORDERED: MULTIVITAMINS/MINERALS THERAP 1 TAB PO SCH (09:00)
[2021-05-20] MEDS ORDERED: FOLIC ACID 1 MG TAB PO SCH (09:00)
[2021-05-20] MEDS ORDERED: SITagliptin 50 MG TAB (JANUVIA) PO SCH (09:00)
[2021-05-20 09:30] LABS: RSV AMPLIFICATION NEGATIVE (NEGATIVE)
[2021-05-20] MEDS ORDERED: DIVA500T9 PO (12:16)
[2021-05-20] MEDS ORDERED: TRAZ1TAB14 PO (12:16)
[2021-05-20] MEDS ORDERED: ATOR40TA75 PO (12:16)
[2021-05-20] MEDS ORDERED: HYDR50TA70 PO (12:17)
[2021-05-20] MEDS ORDERED: HOME MED LIST COMPLETE! XX SCH (12:20)
[2021-05-20] MEDS ORDERED: LORazepam 2 MG TAB PO PRN (12:25)
[2021-05-20] MEDS ORDERED: MOM 30ML SUSPENSION UDC PO PRN (12:25)
[2021-05-20] MEDS ORDERED: hydrOXYzine 50 MG TAB PO PRN (12:25)
[2021-05-20] MEDS ORDERED: FLUTICASONE PROP 0.05% NASAL SPRAY 16 GM (FLONASE) PRN (12:25)
[2021-05-20] MEDS ORDERED: MAALOX 30 ML SUSP *UDC PO PRN (12:25)
[2021-05-20 17:13] VITALS: BP 172/81
[2021-05-20] MEDS: traZODone 50 MG TAB PO SCH (20:37)
[2021-05-20] MEDS: ATORVASTATIN 20 MG TAB PO SCH (20:37)
[2021-05-20 21:45] VITALS: BP 124/67
[2021-05-21 07:14] VITALS: BP 123/64
[2021-05-21] MEDS: SITagliptin 50 MG TAB (JANUVIA) PO SCH (08:23)
[2021-05-21] MEDS: MULTIVITAMINS/MINERALS THERAP 1 TAB PO SCH (08:24)
[2021-05-21] MEDS: FOLIC ACID 1 MG TAB PO SCH (08:24)
[2021-05-21] MEDS: THIAMINE 100 MG TAB PO SCH ×2 (08:24→21:02)
[2021-05-21] MEDS: NICOTINE 21MG/24HR 1 EA TRANSDERMAL TD SCH (11:27)
[2021-05-21] MEDS: LORazepam 1 MG TAB PO SCH ×3 (12:15→21:02)
[2021-05-21 13:49] VITALS: BP 140/78
[2021-05-21 17:14] VITALS: BP 139/71
[2021-05-21] MEDS: traZODone 50 MG TAB PO SCH (21:02)
[2021-05-21] MEDS: ATORVASTATIN 20 MG TAB PO SCH (21:02)
[2021-05-21] MEDS: ACETAMINOPHEN TAB 650MG DOSE (2X325MG) PO PRN (21:03)
[2021-05-22 06:14] VITALS: BP 104/59
[2021-05-22] MEDS: NICOTINE 21MG/24HR 1 EA TRANSDERMAL TD SCH (08:23)
[2021-05-22] MEDS: SITagliptin 50 MG TAB (JANUVIA) PO SCH (08:23)
[2021-05-22] MEDS: THIAMINE 100 MG TAB PO SCH ×2 (08:24→20:17)
[2021-05-22] MEDS: MULTIVITAMINS/MINERALS THERAP 1 TAB PO SCH (08:24)
[2021-05-22] MEDS: FOLIC ACID 1 MG TAB PO SCH (08:25)
[2021-05-22] MEDS: ACETAMINOPHEN TAB 650MG DOSE (2X325MG) PO PRN (08:57)
[2021-05-22] MEDS: buPROPion 75 MG TAB PO SCH ×2 (08:57→20:13)
[2021-05-22] MEDS: LORazepam 1 MG TAB PO SCH ×3 (08:57→20:12)
[2021-05-22 16:20] VITALS: BP 126/74
[2021-05-22 20:13] VITALS: BP 145/68
[2021-05-22] MEDS: traZODone 50 MG TAB PO SCH (20:13)
[2021-05-22] MEDS: ATORVASTATIN 20 MG TAB PO SCH (20:13)
[2021-05-22] MEDS ORDERED: QUEtiapine FUMARATE 100 MG TAB PO SCH (21:00)
[2021-05-22] MEDS ORDERED: PRAZOSIN 1 MG CAP PO SCH (21:00)
[2021-05-23 07:18] VITALS: BP 115/56
[2021-05-23] MEDS: THIAMINE 100 MG TAB PO SCH (08:36)
[2021-05-23] MEDS: buPROPion 75 MG TAB PO SCH (08:36)
[2021-05-23] MEDS: FOLIC ACID 1 MG TAB PO SCH (08:36)
[2021-05-23] MEDS: MULTIVITAMINS/MINERALS THERAP 1 TAB PO SCH (08:36)
[2021-05-23] MEDS: SITagliptin 50 MG TAB (JANUVIA) PO SCH (08:36)
[2021-05-23] MEDS: LORazepam 1 MG TAB PO SCH (08:36)
[2021-05-23] MEDS: NICOTINE 21MG/24HR 1 EA TRANSDERMAL TD SCH (08:39)
[2021-05-23] MEDS ORDERED: QUET100T2 PO (09:00)
[2021-05-23] MEDS ORDERED: BUPR75TA5 PO (09:00)
[2021-05-23] MEDS ORDERED: MINI1CAP PO (09:00)
== END 2021-05-23 10:07 | disposition home or self-care (01) | DRG 885 ==
LOC: M ED 20:07 → M ED INP 05-20 12:25 → M PSY 05-20 17:05
PROVIDERS: ADMIT Psychiatry & Neurology Psychiatry; ATTEND Psychiatry & Neurology Psychiatry
DX: F33.0 Major depressive disorder, recurrent, mild (principal); R45.851 Suicidal ideations; E11.9 Type 2 diabetes mellitus without complications; F10.10 Alcohol abuse, uncomplicated; Z62.810 Personal history of physical and sexual abuse in childhood; F17.220 Nicotine dependence, chewing tobacco, uncomplicated; Z79.899 Other long term (current) drug therapy; Z88.8 Allergy status to other drugs, medicaments and biological substances; Z91.040 Latex allergy status; Z91.018 Allergy to other foods; E78.5 Hyperlipidemia, unspecified; Z59.6 Low income

== ENCOUNTER 2022-10-18 19:59 | Emergency (ER) | payer OTHER, MEDICAID ==
[~2022-10-18] VITALS: Ht 167.6 cm; Wt 81.8 kg
[~2022-10-18 19:59] MED LIST changes: +BUPR75TA5 PO; +HYDR50TA70 PO; +MINI1CAP PO; +TRAZ1TAB14 PO
[2022-10-18 21:02] LABS: HEMATOCRIT 44.1 % (42.0-52.0); HEMOGLOBIN 15.5 g/dl (13.5-17.5); MEAN CORPUSCULAR HGB CONC 35.1 g/dl (32.0-36.5); MEAN CORPUSCULAR VOLUME 96.7 fl (80.0-96.0); PLATELET COUNT, AUTOMATED 293 10^3/uL (150-450); RED BLOOD COUNT 4.56 10^6/uL (4.30-6.10); WHITE BLOOD COUNT 7.7 10^3/uL (4.0-10.0)
[2022-10-18 21:24] LABS: AMPHETAMINES LEVEL URINE NEGATIVE (NEGATIVE)
[2022-10-18 21:25] LABS: BARBITURATES URINE NEGATIVE (NEGATIVE); BENZODIAZEPINES URINE NEGATIVE (NEGATIVE); CANNABINOIDS URINE NEGATIVE (NEGATIVE); COCAINE METABOLITE URINE NEGATIVE (NEGATIVE); METHADONE URINE NEGATIVE (NEGATIVE); OPIATES URINE NEGATIVE (NEGATIVE); PHENCYCLIDINE URINE NEGATIVE (NEGATIVE)
[2022-10-18 21:26] LABS: ETHYL ALCOHOL (ETHANOL) 0.291 % (0.000-0.010)
[2022-10-18 21:28] LABS: BILIRUBIN,DIRECT 0.2 MG/DL (<0.4); SALICYLATE LEVEL < 3.0 MG/DL (<30)
[2022-10-18 21:29] LABS: ACETAMINOPHEN LEVEL < 2.0 UG/ML (10.0-20.0)
[2022-10-18 21:31] LABS: ALBUMIN 3.5 G/DL (3.2-5.2); ALKALINE PHOSPHATASE 89 U/L (46-116); ALT/SGPT 29 U/L (7.0-40); AST/SGOT 30 U/L (<34); BILIRUBIN,TOTAL 0.4 MG/DL (0.3-1.2); BLOOD UREA NITROGEN < 5 MG/DL (9-23); CALCIUM LEVEL 8.5 MG/DL (8.3-10.6); CARBON DIOXIDE LEVEL 22 MMOL/L (20-31); CHLORIDE LEVEL 106 MMOL/L (98-107); CREATININE FOR GFR 0.62 MG/DL (0.70-1.30); GLOMERULAR FILTRATION RATE > 60.0 (>49); GLUCOSE, FASTING 83 MG/DL (74-106); POTASSIUM SERUM 3.7 MMOL/L (3.5-5.1); SODIUM LEVEL 143 MMOL/L (136-145); THYROID STIMULATING HORMONE 2.099 uIU/ML (0.55-4.78); TOTAL PROTEIN 6.9 G/DL (5.7-8.2)
[2022-10-18 21:35] LABS: RSV AMPLIFICATION NEGATIVE (NEGATIVE)
[2022-10-19] MEDS ORDERED: FOLIC ACID 1MG TAB PO SCH (09:00)
[2022-10-19] MEDS ORDERED: THIAMINE 100 MG TAB PO SCH (09:00)
[2022-10-19] MEDS ORDERED: MULTIVITAMINS/MINERALS THERAP 1 TAB PO SCH (09:00)
[2022-10-19] MEDS ORDERED: LORazepam 2 MG TAB PO PRN (09:40)
[2022-10-19] MEDS ORDERED: OXAZEPAM 15MG CAP PO ONE (10:30)
[2022-10-19 13:40] VITALS: BP 141/83
== END 2022-10-19 14:50 | disposition home or self-care (01) ==
LOC: M ED 19:59
DX: F10.129 Alcohol abuse with intoxication, unspecified (principal); R45.851 Suicidal ideations; E11.9 Type 2 diabetes mellitus without complications; I10 Essential (primary) hypertension; F41.9 Anxiety disorder, unspecified; Z91.018 Allergy to other foods; Z91.040 Latex allergy status; Z88.8 Allergy status to other drugs, medicaments and biological substances

== ENCOUNTER → 2023-07-03 | Outpatient (REF) | payer OTHER, MEDICAID ==
[~2023-07-03] MED LIST changes: -AMIT25TA17 PO; +AMIT25TA19 PO; +FLUT50SP17; -FLUTISP; +MONT-5 PO; -SING10TA32 PO
== END ==
LOC: M SFHCDERM 11:44
PROVIDERS: ATTEND Nurse Practitioner Family
DX: D04.4 Carcinoma in situ of skin of scalp and neck (principal); D04.22 Carcinoma in situ of skin of left ear and external auricular canal; L57.8 Other skin changes due to chronic exposure to nonionizing radiation

== ENCOUNTER → 2024-02-16 | Outpatient (REF) | payer OTHER, MEDICAID ==
[~2024-02-16] MED LIST changes: +ATEN25TA PO; +BUPR150T12 PO; +DIVA125C6 PO; +DOXE75CA2 PO; +FLON1SPR NARES; -FLUT50SP17; +FLUTISP; +NICO21PAT TOP; +NICO2LOZ29 MT; +TOPI100T9 PO; +VRAY1.5C PO
== END ==
LOC: M SFHCDERM 12:41
PROVIDERS: ATTEND Nurse Practitioner Family
DX: B35.1 Tinea unguium (principal)

== ENCOUNTER 2024-03-30 14:24 | Inpatient (IN) | payer MEDICARE, MEDICAID ==
[~2024-03-30] VITALS: Ht 167.6 cm; Wt 82.0 kg
[2024-03-30 15:21] LABS: HEMATOCRIT 50.9 % (42.0-52.0); HEMOGLOBIN 17.5 g/dl (13.5-17.5); MEAN CORPUSCULAR HEMOGLOBIN 31.6 pg (27.0-33.0); MEAN CORPUSCULAR HGB CONC 34.4 g/dl (32.0-36.5); MEAN CORPUSCULAR VOLUME 91.9 fl (80.0-96.0); PLATELET COUNT, AUTOMATED 405 10^3/uL (150-450); RED BLOOD COUNT 5.54 10^6/uL (4.30-6.10); WHITE BLOOD COUNT 10.2 10^3/uL (4.0-10.0)
[2024-03-30 15:54] LABS: ALBUMIN 4.4 G/DL (3.2-5.2); ALKALINE PHOSPHATASE 100 U/L (46-116); ALT/SGPT 33 U/L (7.0-40); AST/SGOT 38 U/L (<34); BILIRUBIN,DIRECT 0.1 MG/DL (<0.4); BILIRUBIN,TOTAL 0.3 MG/DL (0.3-1.2); BLOOD UREA NITROGEN 8 MG/DL (9-23); CALCIUM LEVEL 9.4 MG/DL (8.3-10.6); CARBON DIOXIDE LEVEL 23 MMOL/L (20-31); CHLORIDE LEVEL 101 MMOL/L (98-107); CREATININE FOR GFR 0.61 MG/DL (0.70-1.30); GLOMERULAR FILTRATION RATE > 60.0 (>49); GLUCOSE, FASTING 98 MG/DL (74-106); POTASSIUM SERUM 5.1 MMOL/L (3.5-5.1); SALICYLATE LEVEL < 3.0 MG/DL (<30); SODIUM LEVEL 139 MMOL/L (136-145); TOTAL PROTEIN 8.4 G/DL (5.7-8.2)
[2024-03-30 15:55] LABS: THYROID STIMULATING HORMONE 2.569 uIU/ML (0.55-4.78)
[2024-03-30 16:15] LABS: ETHYL ALCOHOL (ETHANOL) 0.332 % (0.000-0.010)
[2024-03-30 16:41] LABS: AMPHETAMINES LEVEL URINE NEGATIVE (NEGATIVE); BENZODIAZEPINES URINE NEGATIVE (NEGATIVE); CANNABINOIDS URINE NEGATIVE (NEGATIVE); METHADONE URINE NEGATIVE (NEGATIVE); OPIATES URINE NEGATIVE (NEGATIVE); PHENCYCLIDINE URINE NEGATIVE (NEGATIVE)
[2024-03-30 16:42] LABS: BARBITURATES URINE NEGATIVE (NEGATIVE); COCAINE METABOLITE URINE NEGATIVE (NEGATIVE)
[2024-03-30 17:37] LABS: VALPROIC ACID (DEPAKOTE) < 3.0 UG/ML (50.0-100.0)
[2024-03-30] MEDS ORDERED: LORazepam 2 MG TAB PO PRN (23:15)
[2024-03-30] MEDS: THIAMINE 100 MG TAB PO SCH (23:21)
[2024-03-31] MEDS ORDERED: PRAZ5CAP22 PO (07:50)
[2024-03-31] MEDS ORDERED: CICL6.6S TOP (07:50)
[2024-03-31] MEDS ORDERED: MONT10TA97 PO (07:53)
[2024-03-31] MEDS ORDERED: BUSP5TA PO (07:53)
[2024-03-31] MEDS ORDERED: PROP10TA56 PO (07:53)
[2024-03-31] MEDS ORDERED: SERT50TA29 PO (07:53)
[2024-03-31] MEDS ORDERED: FLUC150T9 PO (07:53)
[2024-03-31] MEDS ORDERED: HYDR50TA70 PO (07:53)
[2024-03-31] MEDS ORDERED: HOME MED LIST COMPLETE! XX SCH (07:55)
[2024-03-31] MEDS ORDERED: FOLIC ACID 1MG TAB PO SCH (09:00)
[2024-03-31] MEDS ORDERED: MULTIVITAMINS/MINERALS THERAP 1 TAB PO SCH (09:00)
[2024-03-31] MEDS ORDERED: FLUCONAZOLE 50MG TABLET PO SCH (09:00)
[2024-03-31] MEDS: NICOTINE 7 MG/24 HR TRANSDERMAL TD SCH (09:00)
[2024-03-31] MEDS ORDERED: FLUTICASONE PROP 0.05% NASAL SPRAY 16 GM (FLONASE) NARES PRN (09:20)
[2024-03-31] MEDS ORDERED: MOM 30ML SUSPENSION UDC PO PRN (13:05)
[2024-03-31] MEDS ORDERED: LORazepam 2 MG TAB PO PRN (13:05)
[2024-03-31] MEDS ORDERED: ALBUTEROL 90 MCG/ACT 8GM HFA INHALER INH PRN (13:05)
[2024-03-31] MEDS: THIAMINE 100 MG TAB PO SCH (14:00)
[2024-03-31 15:01] VITALS: BP 162/90; TEMP 97.9; O2SAT 95
[2024-03-31 15:02] VITALS: BP 162/90
[2024-03-31] MEDS ORDERED: PRAZOSIN 1 MG CAP PO SCH (21:00)
[2024-03-31] MEDS ORDERED: MONTELUKAST 10 MG TAB PO SCH (21:00)
[2024-03-31] MEDS ORDERED: ATORVASTATIN 20 MG TAB PO SCH (21:00)
[2024-03-31] MEDS ORDERED: SERTRALINE 100 MG TAB PO SCH (21:00)
[2024-03-31] MEDS ORDERED: busPIRone 5 MG TAB PO SCH (21:00)
[2024-03-31] MEDS: traZODone 50 MG TAB PO PRN (21:21)
[2024-04-01 06:55] VITALS: BP 154/82; TEMP 96.6; O2SAT 98
[2024-04-01] MEDS: FOLIC ACID 1MG TAB PO SCH (08:16)
[2024-04-01] MEDS: MULTIVITAMINS/MINERALS THERAP 1 TAB PO SCH (08:16)
[2024-04-01] MEDS: IBUPROFEN 400MG TAB PO PRN (09:40)
[2024-04-01] MEDS ORDERED: FLUTICASONE PROP 0.05% NASAL SPRAY 16 GM (FLONASE) NARES PRN (12:00)
[2024-04-01] MEDS: busPIRone 5 MG TAB PO SCH (12:40)
[2024-04-01] MEDS: MAALOX 30 ML SUSP *UDC PO PRN (14:21)
[2024-04-01 15:28] VITALS: BP 159/74
[2024-04-01 15:35] VITALS: BP 138/65; TEMP 97.3; O2SAT 97
[2024-04-01] MEDS: ACETAMINOPHEN TAB 650MG DOSE (2X325MG) PO PRN (15:56)
[2024-04-01] MEDS: ATORVASTATIN 20 MG TAB PO SCH (20:23)
[2024-04-01] MEDS: diphenhydrAMINE 25MG CAP PO PRN (20:24)
[2024-04-01] MEDS: DIVALPROEX SPRINKLE 125 MG CAP PO SCH (20:24)
[2024-04-01] MEDS: PROPRANOLOL 10 MG TAB PO SCH (20:24)
[2024-04-01] MEDS: PRAZOSIN 1 MG CAP PO SCH (20:24)
[2024-04-01] MEDS: SERTRALINE HCL 50 MG TAB PO SCH (20:25)
[2024-04-01] MEDS: MONTELUKAST 10 MG TAB PO SCH (20:25)
[2024-04-01 22:46] VITALS: BP 133/66
[2024-04-02 06:00] VITALS: BP 113/68
[2024-04-02 06:37] VITALS: BP 113/68; TEMP 98.2; O2SAT 94
[2024-04-02 14:00] VITALS: BP 148/69
[2024-04-02 16:22] VITALS: BP 148/69; TEMP 97.1; O2SAT 99
[2024-04-02 22:33] VITALS: BP 143/73
[2024-04-03 06:20] VITALS: BP 118/66; TEMP 97.4; O2SAT 98
[2024-04-03 14:00] VITALS: BP 138/63
[2024-04-03 16:28] VITALS: BP 138/65; TEMP 97.7; O2SAT 99
[2024-04-03 21:00] VITALS: BP 144/70
[2024-04-04 06:45] VITALS: BP 130/62; TEMP 96.6; O2SAT 98
[2024-04-04 06:46] VITALS: BP 130/62
[2024-04-04 08:09] VITALS: BP 118/56
[2024-04-04] MEDS ORDERED: NICO7PA TD (10:01)
[2024-04-04] MEDS ORDERED: PROP10TA56 PO (10:01)
[2024-04-04] MEDS ORDERED: BUSP5TA PO (10:01)
[2024-04-04] MEDS ORDERED: ROZE8TAB16 PO (10:03)
== END 2024-04-04 14:07 | disposition home or self-care (01) | DRG 885 ==
LOC: M ED 14:24 → M ED INP 03-31 13:01 → M PSY 03-31 14:41
PROVIDERS: ADMIT Student in an Organized Health Care Education/Training Program; ATTEND Student in an Organized Health Care Education/Training Program
DX: F31.9 Bipolar disorder, unspecified (principal); R45.851 Suicidal ideations; F10.10 Alcohol abuse, uncomplicated; F43.10 Post-traumatic stress disorder, unspecified; Z62.810 Personal history of physical and sexual abuse in childhood; Z91.040 Latex allergy status; Z88.8 Allergy status to other drugs, medicaments and biological substances; Z91.018 Allergy to other foods; Z79.899 Other long term (current) drug therapy; E11.9 Type 2 diabetes mellitus without complications; F41.9 Anxiety disorder, unspecified; G47.00 Insomnia, unspecified; Z85.828 Personal history of other malignant neoplasm of skin; Z96.652 Presence of left artificial knee joint; D72.829 Elevated white blood cell count, unspecified

== ENCOUNTER 2024-04-11 15:23 | Emergency (ER) | payer MEDICAID, MEDICARE, OTHER ==
[~2024-04-11 15:23] MED LIST changes: +BUSP5TA PO; +CICL6.6S TOP; +FLUC150T9 PO; +MONT10TA97 PO; +NICO7PA TD; +PRAZ5CAP22 PO; +PROP10TA56 PO; +ROZE8TAB16 PO; +SERT50TA29 PO
[2024-04-11 16:09] LABS: HEMATOCRIT 44.1 % (42.0-52.0); HEMOGLOBIN 15.7 g/dl (13.5-17.5); MEAN CORPUSCULAR HEMOGLOBIN 31.9 pg (27.0-33.0); MEAN CORPUSCULAR HGB CONC 35.6 g/dl (32.0-36.5); MEAN CORPUSCULAR VOLUME 89.6 fl (80.0-96.0); PLATELET COUNT, AUTOMATED 306 10^3/uL (150-450); RED BLOOD COUNT 4.92 10^6/uL (4.30-6.10); WHITE BLOOD COUNT 7.7 10^3/uL (4.0-10.0)
[2024-04-11 16:39] LABS: SALICYLATE LEVEL < 3.0 MG/DL (<30)
[2024-04-11 16:40] LABS: ALBUMIN 3.9 G/DL (3.2-5.2); ALKALINE PHOSPHATASE 82 U/L (46-116); ALT/SGPT 36 U/L (7.0-40); AST/SGOT 36 U/L (<34); BILIRUBIN,DIRECT 0.2 MG/DL (<0.4); BILIRUBIN,TOTAL 0.5 MG/DL (0.3-1.2); BLOOD UREA NITROGEN 8 MG/DL (9-23); CALCIUM LEVEL 8.4 MG/DL (8.3-10.6); CARBON DIOXIDE LEVEL 21 MMOL/L (20-31); CHLORIDE LEVEL 103 MMOL/L (98-107); CREATININE FOR GFR 0.57 MG/DL (0.70-1.30); GLOMERULAR FILTRATION RATE > 60.0 (>49); GLUCOSE, FASTING 112 MG/DL (74-106); POTASSIUM SERUM 3.7 MMOL/L (3.5-5.1); SODIUM LEVEL 136 MMOL/L (136-145); TOTAL PROTEIN 7.3 G/DL (5.7-8.2)
[2024-04-11 16:42] LABS: THYROID STIMULATING HORMONE 1.714 uIU/ML (0.55-4.78)
[2024-04-11 17:20] LABS: ETHYL ALCOHOL (ETHANOL) 0.301 % (0.000-0.010)
[2024-04-11 17:34] LABS: VALPROIC ACID (DEPAKOTE) < 3.0 UG/ML (50.0-100.0)
[2024-04-11 17:39] LABS: AMPHETAMINES LEVEL URINE NEGATIVE (NEGATIVE); BARBITURATES URINE NEGATIVE (NEGATIVE); BENZODIAZEPINES URINE NEGATIVE (NEGATIVE)
[2024-04-11 17:40] LABS: CANNABINOIDS URINE NEGATIVE (NEGATIVE); COCAINE METABOLITE URINE NEGATIVE (NEGATIVE); METHADONE URINE NEGATIVE (NEGATIVE); OPIATES URINE NEGATIVE (NEGATIVE); PHENCYCLIDINE URINE NEGATIVE (NEGATIVE)
[2024-04-11] MEDS: LORazepam 0.5 MG TAB PO ONE ×2 (18:43→20:47)
[2024-04-11] MEDS ORDERED: HOME MED LIST COMPLETE! XX SCH (20:15)
[2024-04-11] MEDS ORDERED: DIVALPROEX 250MG TAB PO SCH (21:00)
[2024-04-11] MEDS: RAMELTEON 8 MG TAB (ROZEREM) PO SCH (21:06)
[2024-04-11] MEDS: PRAZOSIN 1 MG CAP PO SCH (21:07)
[2024-04-11] MEDS: ATORVASTATIN 20 MG TAB PO SCH (21:08)
[2024-04-11] MEDS: busPIRone 5 MG TAB PO SCH (21:08)
[2024-04-11] MEDS: MONTELUKAST 10 MG TAB PO SCH (21:10)
[2024-04-11] MEDS: SERTRALINE 100 MG TAB PO SCH (21:11)
[2024-04-11] MEDS: hydrOXYzine 50 MG TAB PO SCH (21:11)
[2024-04-11] MEDS: OXAZEPAM 15MG CAP PO ONE (21:41)
[2024-04-11] MEDS: DIVALPROEX SPRINKLE 125 MG CAP PO SCH (21:44)
[2024-04-12 07:52] VITALS: BP 180/98
[2024-04-12] MEDS: PROPRANOLOL 10 MG TAB PO SCH (07:52)
[2024-04-12] MEDS ORDERED: LORazepam 2 MG TAB PO PRN (08:00)
[2024-04-12] MEDS: THIAMINE 100 MG TAB PO SCH (08:06)
[2024-04-12] MEDS: MULTIVITAMINS/MINERALS THERAP 1 TAB PO SCH (08:06)
[2024-04-12] MEDS: FOLIC ACID 1MG TAB PO SCH (08:07)
[2024-04-12 13:41] VITALS: BP 149/73; TEMP 97; O2SAT 97
== END 2024-04-12 14:13 | disposition home or self-care (01) ==
LOC: M ED 15:23
DX: F10.24 Alcohol dependence with alcohol-induced mood disorder (principal); F32.A Depression, unspecified; E11.9 Type 2 diabetes mellitus without complications; E78.5 Hyperlipidemia, unspecified; F31.9 Bipolar disorder, unspecified; F17.220 Nicotine dependence, chewing tobacco, uncomplicated; Z88.8 Allergy status to other drugs, medicaments and biological substances; Z91.040 Latex allergy status; Z91.018 Allergy to other foods; Z79.02 Long term (current) use of antithrombotics/antiplatelets; Z79.899 Other long term (current) drug therapy

== ENCOUNTER 2024-04-25 11:52 | Inpatient (IN) | payer MEDICAID, OTHER ==
[~2024-04-25] VITALS: Ht 167.6 cm; Wt 81.6 kg
[2024-04-25 12:44] LABS: HEMATOCRIT 43.7 % (42.0-52.0); HEMOGLOBIN 15.4 g/dl (13.5-17.5); MEAN CORPUSCULAR HEMOGLOBIN 31.8 pg (27.0-33.0); MEAN CORPUSCULAR HGB CONC 35.2 g/dl (32.0-36.5); MEAN CORPUSCULAR VOLUME 90.3 fl (80.0-96.0); PLATELET COUNT, AUTOMATED 330 10^3/uL (150-450); RED BLOOD COUNT 4.84 10^6/uL (4.30-6.10); WHITE BLOOD COUNT 9.2 10^3/uL (4.0-10.0)
[2024-04-25 13:07] LABS: ETHYL ALCOHOL (ETHANOL) 0.139 % (0.000-0.010)
[2024-04-25 13:09] LABS: SALICYLATE LEVEL < 3.0 MG/DL (<30)
[2024-04-25 13:10] LABS: ALBUMIN 3.8 G/DL (3.2-5.2); ALKALINE PHOSPHATASE 86 U/L (46-116); ALT/SGPT 35 U/L (7.0-40); AST/SGOT 33 U/L (<34); BILIRUBIN,DIRECT < 0.1 MG/DL (<0.4); BILIRUBIN,TOTAL 0.3 MG/DL (0.3-1.2); BLOOD UREA NITROGEN 10 MG/DL (9-23); CALCIUM LEVEL 8.6 MG/DL (8.3-10.6); CARBON DIOXIDE LEVEL 22 MMOL/L (20-31); CHLORIDE LEVEL 101 MMOL/L (98-107); GLOMERULAR FILTRATION RATE > 60.0 (>49); GLUCOSE, FASTING 112 MG/DL (74-106); POTASSIUM SERUM 3.8 MMOL/L (3.5-5.1); SODIUM LEVEL 135 MMOL/L (136-145); TOTAL PROTEIN 7.3 G/DL (5.7-8.2)
[2024-04-25 13:12] LABS: THYROID STIMULATING HORMONE 2.244 uIU/ML (0.55-4.78)
[2024-04-25 13:14] LABS: VALPROIC ACID (DEPAKOTE) < 3.0 UG/ML (50.0-100.0)
[2024-04-25] MEDS: LORazepam 0.5 MG TAB PO STA (13:15)
[2024-04-25 13:56] LABS: AMPHETAMINES LEVEL URINE NEGATIVE (NEGATIVE); BARBITURATES URINE NEGATIVE (NEGATIVE); COCAINE METABOLITE URINE NEGATIVE (NEGATIVE); METHADONE URINE NEGATIVE (NEGATIVE); OPIATES URINE NEGATIVE (NEGATIVE)
[2024-04-25 13:57] LABS: CANNABINOIDS URINE NEGATIVE (NEGATIVE); PHENCYCLIDINE URINE NEGATIVE (NEGATIVE)
[2024-04-25 13:58] LABS: BENZODIAZEPINES URINE POSITIVE (NEGATIVE)
[2024-04-25] MEDS: PROPRANOLOL 10 MG TAB PO ONE (14:06)
[2024-04-25] MEDS ORDERED: HOME MED LIST COMPLETE! XX SCH (17:00)
[2024-04-25] MEDS: OXAZEPAM 15MG CAP PO ONE (20:15)
[2024-04-25] MEDS ORDERED: PILL CUTTER 1 EACH XX ONE (20:20)
[2024-04-25] MEDS: ATORVASTATIN 20 MG TAB PO SCH (20:23)
[2024-04-25] MEDS: hydrOXYzine 50 MG TAB PO SCH (20:23)
[2024-04-25] MEDS: MONTELUKAST 10 MG TAB PO SCH (20:24)
[2024-04-25] MEDS: SERTRALINE 100 MG TAB PO SCH (20:24)
[2024-04-25] MEDS: PRAZOSIN 1 MG CAP PO SCH (20:27)
[2024-04-25] MEDS: THIAMINE 100 MG TAB PO SCH (21:00)
[2024-04-25] MEDS: DIVALPROEX SPRINKLE 125 MG CAP PO SCH (21:50)
[2024-04-26] VITALS (11 sets, daily range): BP systolic 134–155; BP diastolic 60–74; TEMP 97–98.9; O2SAT 96–100
[2024-04-26] MEDS ORDERED: MOM 30ML SUSPENSION UDC PO PRN
[2024-04-26] MEDS ORDERED: ACETAMINOPHEN TAB 650MG DOSE (2X325MG) PO PRN
[2024-04-26] MEDS ORDERED: traZODone 50 MG TAB PO PRN
[2024-04-26] MEDS ORDERED: IBUPROFEN 400MG TAB PO PRN
[2024-04-26] MEDS ORDERED: MAALOX 30 ML SUSP *UDC PO PRN
[2024-04-26] MEDS: LORazepam 2 MG TAB PO STA (00:03)
[2024-04-26] MEDS ORDERED: LORazepam 2 MG TAB PO PRN (00:10)
[2024-04-26] MEDS ORDERED: FLUTICASONE PROP 0.05% NASAL SPRAY 16 GM (FLONASE) NARES PRN (08:15)
[2024-04-26] MEDS ORDERED: PROPRANOLOL 10 MG TAB PO PRN (08:15)
[2024-04-26] MEDS: MULTIVITAMINS/MINERALS THERAP 1 TAB PO SCH ×2 (08:40→09:00)
[2024-04-26] MEDS: FOLIC ACID 1MG TAB PO SCH ×2 (08:40→09:00)
[2024-04-26] MEDS: THIAMINE 100 MG TAB PO SCH (09:00)
[2024-04-26] MEDS: LORazepam 2 MG TAB PO PRN (09:22)
[2024-04-26] MEDS: hydrOXYzine 50 MG TAB PO SCH (21:00)
[2024-04-26] MEDS ORDERED: CICLOPIROX 8% TOP SCH (21:00)
[2024-04-26] MEDS: ATORVASTATIN 20 MG TAB PO SCH (21:00)
[2024-04-26] MEDS: PRAZOSIN 1 MG CAP PO SCH (21:00)
[2024-04-26] MEDS: MONTELUKAST 10 MG TAB PO SCH (21:00)
[2024-04-26] MEDS: SERTRALINE 100 MG TAB PO SCH (21:00)
[2024-04-26] MEDS: DIVALPROEX SPRINKLE 125 MG CAP PO SCH (21:00)
[2024-04-27 14:34] VITALS: BP 179/82
[2024-04-27 14:53] VITALS: BP 146/84
[2024-04-27] MEDS: RAMELTEON 8 MG TAB (ROZEREM) PO SCH (21:00)
[2024-04-27] MEDS: DIVALPROEX SPRINKLE 125 MG CAP PO SCH (21:00)
[2024-04-27 22:47] VITALS: BP 145/79
[2024-04-28 06:00] VITALS: BP 126/59
[2024-04-28 06:24] VITALS: BP 126/59; TEMP 97.6; O2SAT 97
[2024-04-28] MEDS: diphenhydrAMINE 25MG CAP PO PRN (08:35)
[2024-04-28] MEDS ORDERED: FLUCONAZOLE 50MG TABLET PO SCH (09:00)
[2024-04-28 13:22] VITALS: BP 138/64
[2024-04-28 16:13] VITALS: BP 138/64; TEMP 97.5; O2SAT 98
[2024-04-28 20:17] VITALS: BP 141/67
[2024-04-28 21:42] VITALS: BP 136/74
[2024-04-29 06:10] VITALS: BP 127/59; TEMP 97.9; O2SAT 97
[2024-04-29 06:11] VITALS: BP 127/59
[2024-04-29 07:45] LABS: VALPROIC ACID (DEPAKOTE) 67.6 UG/ML (50.0-100.0)
[2024-04-29 12:34] VITALS: BP_SYST 138; BP_SYST 143; BP_DIAS 69; BP_DIAS 71; BP_DIAS 74
[2024-04-29 12:35] LABS: ALBUMIN 3.3 G/DL (3.2-5.2); ALKALINE PHOSPHATASE 81 U/L (46-116); ALT/SGPT 24 U/L (7.0-40); AST/SGOT 14 U/L (<34); BILIRUBIN,TOTAL 0.3 MG/DL (0.3-1.2); BLOOD UREA NITROGEN 10 MG/DL (9-23); CALCIUM LEVEL 8.3 MG/DL (8.3-10.6); CARBON DIOXIDE LEVEL 26 MMOL/L (20-31); CHLORIDE LEVEL 104 MMOL/L (98-107); CREATININE FOR GFR 0.58 MG/DL (0.70-1.30); GLOMERULAR FILTRATION RATE > 60.0 (>49); GLUCOSE, FASTING 100 MG/DL (74-106); POTASSIUM SERUM 4.1 MMOL/L (3.5-5.1); SODIUM LEVEL 137 MMOL/L (136-145); TOTAL PROTEIN 6.3 G/DL (5.7-8.2)
[2024-04-29] MEDS ORDERED: SERT50TA29 PO (13:11)
[2024-04-29] MEDS ORDERED: PRAZ5CAP22 PO (13:11)
[2024-04-29] MEDS ORDERED: RAME8TAB2 PO (13:11)
[2024-04-29] MEDS ORDERED: DEPA1TAB3 PO (13:11)
[2024-04-29] MEDS ORDERED: MECL-86 PO (13:11)
[2024-04-29] MEDS: MECLIZINE 25 MG TABLET PO PRN (14:22)
== END 2024-04-29 14:48 | disposition home or self-care (01) | DRG 753 ==
LOC: M ED 11:52 → M ED INP 23:57 → M PSY 04-26 00:26
PROVIDERS: ADMIT Psychiatry & Neurology Psychiatry; ATTEND Student in an Organized Health Care Education/Training Program
DX: F31.9 Bipolar disorder, unspecified (principal); R45.851 Suicidal ideations; F43.10 Post-traumatic stress disorder, unspecified; F10.10 Alcohol abuse, uncomplicated; Z91.040 Latex allergy status; Z91.018 Allergy to other foods; Z88.8 Allergy status to other drugs, medicaments and biological substances; Z79.899 Other long term (current) drug therapy; F41.9 Anxiety disorder, unspecified; G47.00 Insomnia, unspecified; Z85.828 Personal history of other malignant neoplasm of skin; F17.220 Nicotine dependence, chewing tobacco, uncomplicated

== ENCOUNTER 2024-07-23 18:44 | Inpatient (IN) | payer MEDICAID ==
[~2024-07-23] VITALS: Ht 167.6 cm; Wt 89.5 kg
[~2024-07-23 18:44] MED LIST changes: +DEPA1TAB3 PO; +MECL-86 PO; +RAME8TAB2 PO
[2024-07-23 19:36] LABS: HEMATOCRIT 42.6 % (42.0-52.0); HEMOGLOBIN 15.3 g/dl (13.5-17.5); MEAN CORPUSCULAR HEMOGLOBIN 32.5 pg (27.0-33.0); MEAN CORPUSCULAR HGB CONC 35.9 g/dl (32.0-36.5); MEAN CORPUSCULAR VOLUME 90.4 fl (80.0-96.0); PLATELET COUNT, AUTOMATED 288 10^3/uL (150-450); RED BLOOD COUNT 4.71 10^6/uL (4.30-6.10); WHITE BLOOD COUNT 6.8 10^3/uL (4.0-10.0)
[2024-07-23 19:54] LABS: AMPHETAMINES LEVEL URINE NEGATIVE (NEGATIVE); BARBITURATES URINE NEGATIVE (NEGATIVE); BENZODIAZEPINES URINE NEGATIVE (NEGATIVE); COCAINE METABOLITE URINE NEGATIVE (NEGATIVE)
[2024-07-23 19:55] LABS: CANNABINOIDS URINE NEGATIVE (NEGATIVE); METHADONE URINE NEGATIVE (NEGATIVE); OPIATES URINE NEGATIVE (NEGATIVE); PHENCYCLIDINE URINE NEGATIVE (NEGATIVE)
[2024-07-23 20:09] LABS: ETHYL ALCOHOL (ETHANOL) 0.225 % (0.000-0.010)
[2024-07-23 20:11] LABS: ALBUMIN 3.5 G/DL (3.2-5.2); ALKALINE PHOSPHATASE 77 U/L (46-116); ALT/SGPT 37 U/L (7.0-40); AST/SGOT 38 U/L (<34); BILIRUBIN,DIRECT 0.1 MG/DL (<0.4); BILIRUBIN,TOTAL 0.4 MG/DL (0.3-1.2); BLOOD UREA NITROGEN 10 MG/DL (9-23); CALCIUM LEVEL 9.3 MG/DL (8.3-10.6); CARBON DIOXIDE LEVEL 25 MMOL/L (20-31); CHLORIDE LEVEL 105 MMOL/L (98-107); CREATININE FOR GFR 0.59 MG/DL (0.70-1.30); GLOMERULAR FILTRATION RATE > 60.0 (>49); GLUCOSE, FASTING 103 MG/DL (74-106); POTASSIUM SERUM 4.1 MMOL/L (3.5-5.1); SALICYLATE LEVEL < 3.0 MG/DL (<30); SODIUM LEVEL 139 MMOL/L (136-145); TOTAL PROTEIN 7.4 G/DL (5.7-8.2)
[2024-07-23] MEDS ORDERED: LORazepam 2 MG TAB PO PRN (21:30)
[2024-07-23] MEDS: THIAMINE 100 MG TAB PO SCH (22:00)
[2024-07-24] MEDS ORDERED: FOLI1TAB11 PO (01:12)
[2024-07-24] MEDS ORDERED: B-11TAB PO (01:12)
[2024-07-24] MEDS ORDERED: MAGN400C PO (01:12)
[2024-07-24] MEDS ORDERED: RISP-106 PO (01:12)
[2024-07-24] MEDS ORDERED: MULT-90 PO (01:12)
[2024-07-24] MEDS ORDERED: ACAM0.05 PO (01:12)
[2024-07-24] MEDS ORDERED: PRAZ5CAP PO (01:12)
[2024-07-24] MEDS ORDERED: SERT-141 PO (01:13)
[2024-07-24] MEDS ORDERED: HOME MED LIST COMPLETE! XX SCH (01:15)
[2024-07-24] MEDS ORDERED: PROPRANOLOL 10 MG TAB PO PRN (07:25)
[2024-07-24] MEDS: FLUTICASONE PROP 0.05% NASAL SPRAY 16 GM (FLONASE) NARES SCH (09:35)
[2024-07-24] MEDS: MULTIVITAMINS/MINERALS THERAP 1 TAB PO SCH (09:35)
[2024-07-24] MEDS: FOLIC ACID 1MG TAB PO SCH (09:35)
[2024-07-24] MEDS: busPIRone 5 MG TAB PO SCH ×2 (09:35→20:59)
[2024-07-24] MEDS ORDERED: PILL CUTTER 1 EACH XX ONE (09:59)
[2024-07-24] MEDS: ACETAMINOPHEN 325 MG TAB PO ONE (10:24)
[2024-07-24] MEDS ORDERED: OLANZapine 5 MG TAB PO PRN (11:00)
[2024-07-24] MEDS ORDERED: MOM 30ML SUSPENSION UDC PO PRN (11:00)
[2024-07-24] MEDS ORDERED: traZODone 50 MG TAB PO PRN (11:00)
[2024-07-24] MEDS: LORazepam 2 MG TAB PO PRN (14:45)
[2024-07-24] MEDS: ACAMPROSATE CALCIUM 333MG TABLET (CAMPRAL) PO SCH (16:29)
[2024-07-24 16:45] VITALS: BP 154/82; TEMP 97.7; O2SAT 100
[2024-07-24] MEDS: ACETAMINOPHEN TAB 650MG DOSE (2X325MG) PO PRN (17:28)
[2024-07-24 19:00] VITALS: BP 148/78
[2024-07-24] MEDS: THIAMINE 100 MG TAB PO SCH (20:58)
[2024-07-24] MEDS: DIVALPROEX SPRINKLE 125 MG CAP PO SCH (20:58)
[2024-07-24] MEDS: MONTELUKAST 10 MG TAB PO SCH (20:58)
[2024-07-24] MEDS: PRAZOSIN 1 MG CAP PO SCH (20:59)
[2024-07-24] MEDS: risperiDONE 2 MG TAB PO SCH (20:59)
[2024-07-24] MEDS: hydrOXYzine 50 MG TAB PO SCH (20:59)
[2024-07-24] MEDS ORDERED: DIVALPROEX 500MG *ER* TAB PO SCH (21:00)
[2024-07-24] MEDS ORDERED: PRAZOSIN 1 MG CAP PO SCH (21:00)
[2024-07-24] MEDS ORDERED: MONTELUKAST 10 MG TAB PO SCH (21:00)
[2024-07-24] MEDS ORDERED: DIVALPROEX 250MG *ER* TAB PO SCH (21:00)
[2024-07-24] MEDS ORDERED: hydrOXYzine 50 MG TAB PO SCH (21:00)
[2024-07-25 06:08] VITALS: BP 127/63; TEMP 98; O2SAT 98
[2024-07-25 08:00] VITALS: BP 127/63
[2024-07-25] MEDS: NICOTINE 21MG/24HR 1 EA TRANSDERMAL TD PRN (08:26)
[2024-07-25] MEDS: MAGNESIUM OXIDE 400MG TAB (MAG-OX) PO SCH (08:26)
[2024-07-25] MEDS: FOLIC ACID 1MG TAB PO SCH (08:27)
[2024-07-25] MEDS: SERTRALINE HCL 50 MG TAB PO SCH (08:27)
[2024-07-25] MEDS: MULTIVITAMINS/MINERALS THERAP 1 TAB PO SCH (08:27)
[2024-07-25 15:18] VITALS: BP 164/74; TEMP 97.3; O2SAT 97
[2024-07-25 16:00] VITALS: BP 164/74
[2024-07-25] MEDS: MAALOX 30 ML SUSP *UDC PO PRN (17:23)
[2024-07-26] VITALS: BP 145/66
[2024-07-26 06:39] VITALS: BP_SYST 154; BP_DIAS 70; BP_DIAS 78; TEMP 97.1; O2SAT 99
[2024-07-26] MEDS: FLUTICASONE PROP 0.05% NASAL SPRAY 16 GM (FLONASE) NARES PRN (14:23)
[2024-07-26 16:13] VITALS: BP 160/88; TEMP 97.3; O2SAT 99
[2024-07-26] MEDS: PROPRANOLOL 10 MG TAB PO PRN (16:30)
[2024-07-26] MEDS: IBUPROFEN 400MG TAB PO PRN (17:47)
[2024-07-26] MEDS: diphenhydrAMINE 25MG CAP PO PRN (17:47)
[2024-07-26 20:27] VITALS: BP 146/83
[2024-07-27 06:16] VITALS: BP 142/83
[2024-07-27 06:29] VITALS: BP 142/83; TEMP 97.6; O2SAT 98
[2024-07-27 15:37] VITALS: BP 148/90; TEMP 98.2; O2SAT 98
[2024-07-28 06:28] VITALS: BP 144/80; TEMP 98; O2SAT 97
[2024-07-28 14:49] VITALS: BP 152/72; TEMP 97.7; O2SAT 98
[2024-07-28 21:01] VITALS: BP 157/74
[2024-07-29 06:58] VITALS: BP 148/82; TEMP 97.4; O2SAT 98
== END 2024-07-29 13:06 | disposition home or self-care (01) | DRG 754 ==
LOC: M ED 18:44 → M ED INP 07-24 10:56 → M PSY 07-24 15:05
PROVIDERS: ADMIT Psychiatry & Neurology Psychiatry; ATTEND Psychiatry & Neurology Psychiatry
DX: F32.A Depression, unspecified (principal); F31.9 Bipolar disorder, unspecified; F43.10 Post-traumatic stress disorder, unspecified; F10.10 Alcohol abuse, uncomplicated; Z91.148 Patient's other noncompliance with medication regimen for other reason; R45.851 Suicidal ideations; Z91.040 Latex allergy status; Z88.8 Allergy status to other drugs, medicaments and biological substances; Z91.018 Allergy to other foods; Z79.899 Other long term (current) drug therapy; F17.200 Nicotine dependence, unspecified, uncomplicated; E11.9 Type 2 diabetes mellitus without complications; Z85.828 Personal history of other malignant neoplasm of skin; G47.33 Obstructive sleep apnea (adult) (pediatric); Z96.652 Presence of left artificial knee joint

== ENCOUNTER 2024-09-13 14:59 | Inpatient (IN) | payer MEDICARE, MEDICAID ==
[~2024-09-13] VITALS: Ht 167.6 cm; Wt 82.4 kg
[~2024-09-13 14:59] MED LIST changes: +B-11TAB PO; +MAGN400C PO; +MULT-90 PO; +PRAZ5CAP PO; +RISP-106 PO; +SERT-141 PO
[2024-09-13 15:43] LABS: HEMATOCRIT 44.7 % (42.0-52.0); HEMOGLOBIN 16.1 g/dl (13.5-17.5); MEAN CORPUSCULAR HEMOGLOBIN 32.3 pg (27.0-33.0); MEAN CORPUSCULAR VOLUME 89.6 fl (80.0-96.0); PLATELET COUNT, AUTOMATED 376 10^3/uL (150-450); RED BLOOD COUNT 4.99 10^6/uL (4.30-6.10); WHITE BLOOD COUNT 7.6 10^3/uL (4.0-10.0)
[2024-09-13 16:12] LABS: AMPHETAMINES LEVEL URINE NEGATIVE (NEGATIVE); BARBITURATES URINE NEGATIVE (NEGATIVE); BENZODIAZEPINES URINE NEGATIVE (NEGATIVE); CANNABINOIDS URINE NEGATIVE (NEGATIVE); COCAINE METABOLITE URINE NEGATIVE (NEGATIVE); METHADONE URINE NEGATIVE (NEGATIVE); OPIATES URINE NEGATIVE (NEGATIVE); PHENCYCLIDINE URINE NEGATIVE (NEGATIVE)
[2024-09-13 16:14] LABS: ALBUMIN 3.9 G/DL (3.2-5.2); ALKALINE PHOSPHATASE 81 U/L (40-129); ALT/SGPT 28 U/L (7.0-40); AST/SGOT 32 U/L (<34); BILIRUBIN,DIRECT 0.1 MG/DL (<0.4); BILIRUBIN,TOTAL 0.4 MG/DL (0.3-1.2); BLOOD UREA NITROGEN 8 MG/DL (9-23); CALCIUM LEVEL 9.1 MG/DL (8.3-10.6); CARBON DIOXIDE LEVEL 22 MMOL/L (20-31); CHLORIDE LEVEL 99 MMOL/L (98-107); GLOMERULAR FILTRATION RATE > 60.0 (>49); GLUCOSE, FASTING 107 MG/DL (74-106); POTASSIUM SERUM 3.9 MMOL/L (3.5-5.1); SALICYLATE LEVEL < 3.0 MG/DL (<30); SODIUM LEVEL 135 MMOL/L (136-145)
[2024-09-13 16:17] LABS: THYROID STIMULATING HORMONE 1.983 uIU/ML (0.55-4.78)
[2024-09-13 16:53] LABS: ETHYL ALCOHOL (ETHANOL) 0.324 % (0.000-0.010)
[2024-09-13] MEDS ORDERED: LORazepam 2 MG TAB PO PRN (17:40)
[2024-09-13] MEDS: THIAMINE 100 MG TAB PO SCH (18:11)
[2024-09-14] VITALS (7 sets, daily range): BP systolic 158–183; BP diastolic 75–92; TEMP 96.3–98.2; O2SAT 93–98
[2024-09-14] MEDS: NICOTINE 21MG/24HR 1 EA TRANSDERMAL TD ONE (00:24)
[2024-09-14] MEDS ORDERED: IBUPROFEN 400MG TAB PO PRN (04:25)
[2024-09-14] MEDS ORDERED: THIA100T7 PO (04:34)
[2024-09-14] MEDS ORDERED: THERTAB52 PO (04:34)
[2024-09-14] MEDS ORDERED: SERT-141 PO (04:34)
[2024-09-14] MEDS ORDERED: VENL75CA47 PO (04:34)
[2024-09-14] MEDS ORDERED: HOME MED LIST COMPLETE! XX SCH (04:35)
[2024-09-14] MEDS: ACETAMINOPHEN 325 MG TAB PO PRN (06:01)
[2024-09-14] MEDS: LORazepam 2 MG TAB PO PRN (07:13)
[2024-09-14] MEDS: THIAMINE 100 MG TAB PO SCH (08:00)
[2024-09-14] MEDS: FOLIC ACID 1MG TAB PO SCH (08:57)
[2024-09-14] MEDS: MULTIVITAMINS/MINERALS THERAP 1 TAB PO SCH (08:57)
[2024-09-14] MEDS ORDERED: MULTIVITAMINS/MINERALS THERAP 1 TAB PO SCH (09:00)
[2024-09-14] MEDS ORDERED: FOLIC ACID 1MG TAB PO SCH (09:00)
[2024-09-14] MEDS: NICOTINE 21MG/24HR 1 EA TRANSDERMAL TD SCH (09:38)
[2024-09-14] MEDS: METOPROLOL SUCC *XL* 25MG TAB (TopROL *XL*) PO STA (09:41)
[2024-09-14] MEDS: LORazepam 2 MG TAB PO STA (11:00)
[2024-09-14] MEDS ORDERED: PHENobarbitaL 30 MG TAB PO SCH (13:00)
[2024-09-16 14:30] VITALS: BP 137/64
[2024-09-16] MEDS ORDERED: IBUPROFEN 400MG TAB PO PRN (15:15)
[2024-09-16] MEDS ORDERED: MOM 30ML SUSPENSION UDC PO PRN (15:15)
[2024-09-16] MEDS ORDERED: LORazepam 2 MG TAB PO PRN (15:15)
[2024-09-16] MEDS ORDERED: diphenhydrAMINE 25MG CAP PO PRN (15:15)
[2024-09-16] MEDS ORDERED: MAALOX 30 ML SUSP *UDC PO PRN (15:15)
[2024-09-16] MEDS: risperiDONE 2 MG TAB PO SCH (20:26)
[2024-09-16] MEDS: busPIRone 5 MG TAB PO SCH (20:26)
[2024-09-16] MEDS: THIAMINE 100 MG TAB PO SCH (20:26)
[2024-09-16] MEDS: MONTELUKAST 10 MG TAB PO SCH (20:26)
[2024-09-16] MEDS: PROPRANOLOL 10 MG TAB PO SCH (20:26)
[2024-09-16] MEDS: DIVALPROEX 500MG *ER* TAB PO SCH (20:26)
[2024-09-16] MEDS: PRAZOSIN 1 MG CAP PO SCH (20:27)
[2024-09-16] MEDS: hydrOXYzine 50 MG TAB PO SCH (20:27)
[2024-09-16] MEDS: SERTRALINE HCL 50 MG TAB PO SCH (20:27)
[2024-09-16 21:30] VITALS: BP 137/64
[2024-09-17 06:16] VITALS: BP 132/66; TEMP 97.8; O2SAT 100
[2024-09-17] MEDS: FOLIC ACID 1MG TAB PO SCH (09:00)
[2024-09-17] MEDS: FLUTICASONE PROP 0.05% NASAL SPRAY 16 GM (FLONASE) NARES SCH (09:00)
[2024-09-17] MEDS: MULTIVITAMINS/MINERALS THERAP 1 TAB PO SCH (09:00)
[2024-09-17] MEDS: VENLAFAXINE **XR** 75MG CAPSULE PO SCH (09:09)
[2024-09-17] MEDS: NICOTINE 14 MG/24 HR TRANSDERMAL TD SCH (09:09)
[2024-09-17 14:30] VITALS: BP 130/68; TEMP 98.4; O2SAT 98
[2024-09-17 14:33] VITALS: BP 130/68
[2024-09-17 20:22] VITALS: BP 167/79; TEMP 96.9; O2SAT 98
[2024-09-18 06:13] VITALS: BP 126/61
[2024-09-18 06:24] VITALS: BP 126/61; TEMP 97.7; O2SAT 97
[2024-09-18 08:19] VITALS: BP 131/66
[2024-09-18] MEDS: ACETAMINOPHEN 325 MG TAB PO PRN (11:15)
[2024-09-18 15:16] VITALS: BP 129/63; TEMP 97.4; O2SAT 98
[2024-09-19 06:37] VITALS: BP 136/70; TEMP 97.9; O2SAT 98
[2024-09-19 08:11] VITALS: BP 125/64
[2024-09-19 08:13] VITALS: BP 125/64
[2024-09-19] MEDS ORDERED: PRAZ1CAP PO (11:34)
[2024-09-19] MEDS ORDERED: SERT50TA29 PO (11:34)
[2024-09-19] MEDS ORDERED: BUSP5TA PO (11:34)
[2024-09-19] MEDS ORDERED: VENL75CA47 PO (11:34)
[2024-09-19] MEDS ORDERED: RISP2TAB32 PO (11:34)
[2024-09-19] MEDS ORDERED: DEPA500T2 PO (11:34)
[2024-09-19] MEDS ORDERED: PROP10TA56 PO (11:34)
[2024-09-19] MEDS ORDERED: HYDR50TA70 PO (11:34)
== END 2024-09-19 14:33 | disposition home or self-care (01) | DRG 881 ==
LOC: M ED 14:59 → M ED INP 09-14 04:23 → M PSY 09-14 05:20 → UNDODISIN 09-14 13:06 → M PSY 09-16 14:10
PROVIDERS: ADMIT Psychiatry & Neurology Psychiatry; ATTEND Psychiatry & Neurology Psychiatry
DX: F32.A Depression, unspecified (principal); R45.851 Suicidal ideations; F41.1 Generalized anxiety disorder; F43.10 Post-traumatic stress disorder, unspecified; Z91.040 Latex allergy status; Z88.8 Allergy status to other drugs, medicaments and biological substances; Z91.018 Allergy to other foods; Z79.899 Other long term (current) drug therapy; Z91.148 Patient's other noncompliance with medication regimen for other reason

== ENCOUNTER 2024-09-14 11:56 | Inpatient (IN) | payer MEDICARE, MEDICAID ==
[~2024-09-14] VITALS: Ht 177.8 cm; Wt 82.0 kg
[~2024-09-14 11:56] MED LIST changes: +THERTAB52 PO; +THIA100T7 PO; +VENL75CA47 PO
[2024-09-14] MEDS ORDERED: ACETAMINOPHEN 325 MG TAB PO PRN (13:20)
[2024-09-14 13:26] VITALS: BP 160/74; TEMP 98.6; O2SAT 100
[2024-09-14] MEDS: LORazepam 2 MG TAB PO PRN (13:43)
[2024-09-14] MEDS: FOLIC ACID 1MG TAB PO SCH (14:21)
[2024-09-14] MEDS: THIAMINE 100 MG TAB PO SCH (14:21)
[2024-09-14] MEDS: MULTIVITAMINS/MINERALS THERAP 1 TAB PO SCH (14:21)
[2024-09-14 14:43] LABS: ALBUMIN 3.6 G/DL (3.2-5.2); ALKALINE PHOSPHATASE 82 U/L (40-129); ALT/SGPT 30 U/L (7.0-40); AST/SGOT 38 U/L (<34); BILIRUBIN,TOTAL 0.9 MG/DL (0.3-1.2); BLOOD UREA NITROGEN 11 MG/DL (9-23); CALCIUM LEVEL 9.4 MG/DL (8.3-10.6); CARBON DIOXIDE LEVEL 24 MMOL/L (20-31); CHLORIDE LEVEL 99 MMOL/L (98-107); CREATININE FOR GFR 0.64 MG/DL (0.70-1.30); GLOMERULAR FILTRATION RATE > 60.0 (>49); GLUCOSE, FASTING 147 MG/DL (74-106); POTASSIUM SERUM 4.1 MMOL/L (3.5-5.1); SODIUM LEVEL 135 MMOL/L (136-145); TOTAL PROTEIN 7.2 G/DL (5.7-8.2)
[2024-09-14 16:00] VITALS: BP_SYST 159; BP_SYST 170; BP_DIAS 79; BP_DIAS 80; TEMP 98; O2SAT 95
[2024-09-14] MEDS ORDERED: HOME MED LIST COMPLETE! XX SCH (16:45)
[2024-09-14 17:59] LABS: HEMATOCRIT 39.3 % (42.0-52.0); MEAN CORPUSCULAR HEMOGLOBIN 32.1 pg (27.0-33.0); MEAN CORPUSCULAR HGB CONC 35.9 g/dl (32.0-36.5); MEAN CORPUSCULAR VOLUME 89.5 fl (80.0-96.0); PLATELET COUNT, AUTOMATED 346 10^3/uL (150-450); RED BLOOD COUNT 4.39 10^6/uL (4.30-6.10)
[2024-09-14 18:04] LABS: HEMOGLOBIN 14.1 g/dl (13.5-17.5)
[2024-09-14 20:59] VITALS: BP 137/75; TEMP 97.3; O2SAT 96
[2024-09-14] MEDS: DIVALPROEX 500MG *ER* TAB PO SCH (21:00)
[2024-09-14] MEDS: SERTRALINE HCL 50 MG TAB PO SCH (21:01)
[2024-09-14] MEDS: MONTELUKAST 10 MG TAB PO SCH (21:02)
[2024-09-14] MEDS: busPIRone 5 MG TAB PO SCH (21:03)
[2024-09-14] MEDS: hydrOXYzine 50 MG TAB PO SCH (21:03)
[2024-09-14] MEDS: risperiDONE 2 MG TAB PO SCH (21:04)
[2024-09-14] MEDS: PROPRANOLOL 10 MG TAB PO SCH (21:04)
[2024-09-14] MEDS: PRAZOSIN 1 MG CAP PO SCH (21:04)
[2024-09-14] MEDS: PHENobarbitaL 30 MG TAB PO SCH (21:05)
[2024-09-14] MEDS: VALPROIC ACID PO ONE (22:34)
[2024-09-15 00:21] VITALS: BP 124/60; TEMP 97.5; O2SAT 98
[2024-09-15 02:25] VITALS: BP 113/78
[2024-09-15 03:31] VITALS: BP 122/62; TEMP 97.4; O2SAT 97
[2024-09-15 06:21] LABS: HEMATOCRIT 39.8 % (42.0-52.0); HEMOGLOBIN 13.7 g/dl (13.5-17.5); MEAN CORPUSCULAR HEMOGLOBIN 31.9 pg (27.0-33.0); MEAN CORPUSCULAR HGB CONC 34.4 g/dl (32.0-36.5); MEAN CORPUSCULAR VOLUME 92.6 fl (80.0-96.0); PLATELET COUNT, AUTOMATED 313 10^3/uL (150-450); WHITE BLOOD COUNT 7.4 10^3/uL (4.0-10.0)
[2024-09-15 06:45] LABS: BLOOD UREA NITROGEN 10 MG/DL (9-23); CARBON DIOXIDE LEVEL 28 MMOL/L (20-31); CHLORIDE LEVEL 102 MMOL/L (98-107); CREATININE FOR GFR 0.77 MG/DL (0.70-1.30); GLOMERULAR FILTRATION RATE > 60.0 (>49); GLUCOSE, FASTING 95 MG/DL (74-106); MAGNESIUM LEVEL 1.9 MG/DL (1.8-2.4); POTASSIUM SERUM 3.7 MMOL/L (3.5-5.1); SODIUM LEVEL 138 MMOL/L (136-145)
[2024-09-15 07:35] VITALS: BP 141/73; TEMP 97.6; O2SAT 98
[2024-09-15] MEDS: FLUTICASONE PROP 0.05% NASAL SPRAY 16 GM (FLONASE) NARES SCH (09:44)
[2024-09-15] MEDS: NICOTINE 14 MG/24 HR TRANSDERMAL TD SCH (09:45)
[2024-09-15] MEDS: VENLAFAXINE **XR** 75MG CAPSULE PO SCH (09:45)
[2024-09-15 12:10] VITALS: BP 148/71; TEMP 98.1; O2SAT 97
[2024-09-15 20:00] VITALS: BP 139/73; TEMP 97.7; O2SAT 97
[2024-09-15] MEDS ORDERED: PILL CUTTER 1 EACH XX ONE (20:05)
[2024-09-16 04:03] VITALS: BP 131/65; TEMP 98.2; O2SAT 97
[2024-09-16 07:41] VITALS: BP 147/75; TEMP 97.7; O2SAT 97
[2024-09-16 09:00] VITALS: BP 147/75
[2024-09-16 09:36] VITALS: BP 147/75
== END 2024-09-16 14:08 | DRG 897 ==
LOC: M PCU 13:10
PROVIDERS: ADMIT Student in an Organized Health Care Education/Training Program; ATTEND Student in an Organized Health Care Education/Training Program
DX: F10.139 Alcohol abuse with withdrawal, unspecified (principal); R45.851 Suicidal ideations; F41.9 Anxiety disorder, unspecified; F32.A Depression, unspecified; F43.10 Post-traumatic stress disorder, unspecified; G47.33 Obstructive sleep apnea (adult) (pediatric); Z85.828 Personal history of other malignant neoplasm of skin; Z91.040 Latex allergy status; Z91.018 Allergy to other foods; Z88.8 Allergy status to other drugs, medicaments and biological substances; Z79.899 Other long term (current) drug therapy; Z96.652 Presence of left artificial knee joint; F17.290 Nicotine dependence, other tobacco product, uncomplicated; E11.9 Type 2 diabetes mellitus without complications

== ENCOUNTER → 2025-09-21 | Outpatient (REF) | payer MEDICARE, MEDICAID ==
[~2025-09-21] MED LIST changes: -ABIL400I IM; +AMIT10TA11 PO; -AMIT10TA7 PO; +ARIP400S IM; +BUPR-363 PO; -BUPR75TA5 PO; +DEPA250T PO; -DEPA250T2 PO; +PRAZ1CAP PO; +RISP2TAB32 PO; +TOPI-257 PO; -TOPI100T9 PO
== END ==
LOC: M SFHCDERM 09:21
PROVIDERS: ATTEND Dermatology
DX: D48.5 Neoplasm of uncertain behavior of skin (principal)